=== PATIENT | female | born 1990 | race Hispanic/Latino ===

== ENCOUNTER 2016-04-09 11:32 | Emergency (ER) | payer OTHER ==
[2016-04-09] MEDS ORDERED: ACETAMINOPHEN 325 MG TAB As Ordered ONE (12:47)
--- NOTE | 2016-04-09 12:53 | EDDOCDS ---
Physician Documentation [facility] Name: Comfort Meadows Age: 26 yrs Sex: Female : 1990 Arrival Date: 04/09/2016 Time: 11:32 Bed TR7 Private MD: Ryan [facility] Disposition: 04/09/16 12:43 Discharged to Home/Self Care. Impression: related conditions, unspecified, first trimester, Pain in right hip. - Condition is Stable. - Discharge Instructions: Medicines During , Hip Pain, First Trimester of , [id number]. - Prescriptions for Tylenol 325 mg Oral Tablet - take 2 tablets by ORAL route every 6 hours as needed; 30 tablet. Cyclobenzaprine 10 mg Oral Tablet - take 1 tablet by ORAL route 3 times per day As needed Will cause drowsiness, do not take while driving or operating heavy machinery.; 15 tablet. - Medication Reconciliation, Local Pharmacy Hours form. - Follow up: OB [place]; When: 1 - 2 days; Reason: Further diagnostic work-up, Recheck today's complaints, Continuance of care. Follow up: Emergency Department; Reason: Worsening of conditions. - Problem is new. - Symptoms have improved. Historical: - Allergies: no known allergies; - Home Meds: 1. Vitamin Oral once daily - PMHx: Endometriosis; Psoriasis; - PSHx: Endoscopy, Lower; Endoscopy, Upper; ovarian cystectomy; - Social history: Smoking status: Patient states was never smoker of tobacco. No barriers to communication noted, The patient speaks fluent Ghanaian. - Family history: Not pertinent. - : The pt / caregiver states he / she is not on anticoagulants. Home medication list is obtained from the patient. - Exposure Risk Screening:: None identified. 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 4 in. (162.56 cm) (R); Pain 10/10; 11:38 Body Mass Index 25.23 (66.68 kg, 162.56 cm) elp MDM: 12:35 Acetaminophen Tablet 975 mg PO once ordered. ef1 12:35 Ice Pack ordered. ef1 Administered Medications: 12:50 Drug: Acetaminophen 975 mg [acetaminophen 325 mg tablet (3 tabs)] Route: PO; [facility] Signatures: Ellen Watts RN RN Anastasiya Leos PA-C PAFeroz ef1 MTDD
--- NOTE | 2016-04-09 12:53 | EDDOCDS ---
Nurse's Notes [facility] Name: Comfort Meadows Age: 26 yrs Sex: Female : 1990 Arrival Date: 04/09/2016 Time: 11:32 Bed TR7 Private MD: JERZY Davis Diagnosis: related conditions, unspecified, first trimester;Pain in right hip Presentation: 04/09 11:37 Presenting complaint: Patient states: Woke up with right hip pain--unable to get out of [facility] bed. Pt is 11 weeks . Adult Sepsis Screening: The patient does not have new or worsening altered mentation. Patient's respiratory rate is less than 22. Systolic blood pressure is greater than 100. Patient has a qSOFA score of 0- Negative Sepsis Screen. Suicide/Homicide risk assessment- the patient denies having any suicidal and/or homicidal ideations and does not present with any other emotional, behavioral or mental health complaints. Status: The patient is a dependent. Transition of care: patient was not received from another setting of care. 11:37 Acuity: BENOIT Level 4 [facility] 11:37 Method Of Arrival: Wheelchair [facility] Triage Assessment: 11:39 General: Appears uncomfortable, Behavior is cooperative. Pain: Location: right hip Pain mcp currently is 10 out of 10 on a pain scale. HIV screening NA for this visit Offered previously. Neurological: No deficits noted. Respiratory: Airway is patent Respiratory effort is even, unlabored. Derm: Skin is pink, warm & dry. Musculoskeletal: Circulation, motion, and sensation intact. 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 Vitamin Oral once daily - PMHx: Endometriosis; Psoriasis; - PSHx: Endoscopy, Lower; Endoscopy, Upper; ovarian cystectomy; - Social history: Smoking status: Patient states was never smoker of tobacco. No barriers to communication noted, The patient speaks fluent Persian. - Family history: Not pertinent. - : The pt / caregiver states he / she is not on anticoagulants. Home medication list is obtained from the patient. - Exposure Risk Screening:: None identified. Screenin:51 Screening information is obtained from the patient. Fall risk: No risks identified. mcp Assistance ADL's: requires no assistance with activities of daily living. Abuse/DV Screen: The patient / caregiver reports he/she is: not in a situation that causes fear, pain or injury. Nutritional screening: No deficits noted. Advance Directives: There is no active DNR order. home support is adequate. Assessment: 12:50 General: Appears uncomfortable, Behavior is cooperative. Pain: Location: right hip Pain mcp currently is 9 out of 10 on a pain scale. Neurological: No deficits noted. Respiratory: Airway is patent Respiratory effort is even, unlabored. Derm: Skin is pink, warm & dry. Musculoskeletal: Circulation, motion, and sensation intact. Vital Signs: 11:38 BP 129 / 68; Pulse 113; Resp 20; Temp 97.5(O); Pulse Ox 100% on R/A; Weight 66.68 kg elp (R); Height 5 ft. 4 in. (162.56 cm) (R); Pain 10/10; 11:38 Body Mass Index 25.23 (66.68 kg, 162.56 cm) [facility] Vitals: 11:38 Log In Time: April 09, 2016 at 11:35. [facility] ED Course: 11:36 Patient visited by Rey Polo PCA. dd6 11:36 [facility] is Private Physician. elp 11:36 Patient moved to Waiting dd6 11:36 Patient moved to Pre RCE elp 11:38 Triage Initiated mcp 11:40 Patient visited by Ellen Watts RN. mcp 12:12 Patient moved to Triage 3 dls 12:26 [facility] ef1 12:26 Ranulfo Garrison MD is Attending Physician. ef1 12:29 Patient visited by Anastasiya Soni PA-C. ef1 12:43 Madonna Lorenzo, OB is Referral Physician. ef1 12:49 Patient moved to TR7 ar3 12:51 The patient / caregiver is instructed regarding the plan of care and ED course. Bed in mcp low position. Call light in reach. 12:51 No IV's were initiated during this patient's visit. No procedures done that require mcp assistance. Administered Medications: 12:50 Drug: Acetaminophen 975 mg [acetaminophen 325 mg tablet (3 tabs)] Route: PO; mcp Order Results: There are currently no results for this order. Outcome: 12:43 Discharge ordered by Provider. ef1 12:51 Discharge Assessment: patient administered narcotics - no. The following High Risk mcp Discharge criteria are identified: None. Discharged to home ambulatory, with significant other. Condition: stable. Discharge instructions given to patient, Instructed on discharge instructions, follow up and referral plans. medication usage, no driving heavy equipment, no drinking with medication, Demonstrated understanding of instructions, medications, Pt was receptive of discharge instructions/ teaching. Prescriptions given X 2. No special radiology studies were completed. Property sent home with patient. 12:52 Patient left the ED. [facility] Signatures: Ellen Watts RN RN mcp Scott, Debra, RN RN dls Desormeau, Daniell, APARTMENT RENTAL AGENT APARTMENT RENTAL AGENT dd6 Anastasiya Soni PA-C PAFeroz ef1 Thao Gaines, APARTMENT RENTAL AGENT APARTMENT RENTAL AGENT ar3 Tamika Glover, APARTMENT RENTAL AGENT APARTMENT RENTAL AGENT elp Corrections: (The following items were deleted from the chart) 11:39 11:37 Presenting complaint: Patient states: Woke up with right hip pain--unable to get mcp out of bed mcp MTDD
--- NOTE | 2016-04-11 13:53 | EDDOCDS ---
Physician Documentation [facility] Name: Comfort Meadows Age: 26 yrs Sex: Female : 1990 Arrival Date: 04/09/2016 Time: 11:32 Bed TR7 Private MD: Ryan [facility] Disposition: 04/09/16 12:43 Discharged to Home/Self Care. Impression: related conditions, unspecified, first trimester, Pain in right hip. - Condition is Stable. - Discharge Instructions: Medicines During , Hip Pain, First Trimester of , [id number]. - Prescriptions for Tylenol 325 mg Oral Tablet - take 2 tablets by ORAL route every 6 hours as needed; 30 tablet. Cyclobenzaprine 10 mg Oral Tablet - take 1 tablet by ORAL route 3 times per day As needed Will cause drowsiness, do not take while driving or operating heavy machinery.; 15 tablet. - Medication Reconciliation, Local Pharmacy Hours form. - Follow up: OB [place]; When: 1 - 2 days; Reason: Further diagnostic work-up, Recheck today's complaints, Continuance of care. Follow up: Emergency Department; Reason: Worsening of conditions. - Problem is new. - Symptoms have improved. Historical: - Allergies: no known allergies; - Home Meds: 1. Vitamin Oral once daily - PMHx: Endometriosis; Psoriasis; - PSHx: Endoscopy, Lower; Endoscopy, Upper; ovarian cystectomy; - Social history: Smoking status: Patient states was never smoker of tobacco. No barriers to communication noted, The patient speaks fluent British. - Family history: Not pertinent. - : The pt / caregiver states he / she is not on anticoagulants. Home medication list is obtained from the patient. - Exposure Risk Screening:: None identified. 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 4 in. (162.56 cm) (R); Pain 10/10; 11:38 Body Mass Index 25.23 (66.68 kg, 162.56 cm) elp MDM: 12:35 Acetaminophen Tablet 975 mg PO once ordered. ef1 12:35 Ice Pack ordered. ef1 14:15 [facility] Payment Agreement was scanned into [employer] and attached to record. jp5 14:15 Financial registration complete. jp5 16:35 T-Sheet-- Draft Copy was scanned into [employer] and attached to record. klr Administered Medications: 12:50 Drug: Acetaminophen 975 mg [acetaminophen 325 mg tablet (3 tabs)] Route: PO; mcp Signatures: Ellen Watts RN RN Anastasiya Leos, PAAdelaC PAFeroz ef1 Mal Gomes jp5 Odalys Leer The chart was reviewed and I authenticate all verbal orders and agree with the evaluation and treatment provided.Attachments: 14:15 [facility] Payment Agreement jp5 16:35 T-Sheet-- Draft Copy klr Chart Complete MTDD
--- NOTE | 2016-04-11 13:53 | EDDOCDS ---
Physician Documentation [facility] Name: Comfort Meadows Age: 26 yrs Sex: Female : 1990 Arrival Date: 04/09/2016 Time: 11:32 Bed TR7 Private MD: Ryan [facility] [place] Disposition: 04/09/16 12:43 Discharged to Home/Self Care. Impression: related conditions, unspecified, first trimester, Pain in right hip. - Condition is Stable. - Discharge Instructions: Medicines During , Hip Pain, First Trimester of , [id number]. - Prescriptions for Tylenol 325 mg Oral Tablet - take 2 tablets by ORAL route every 6 hours as needed; 30 tablet. Cyclobenzaprine 10 mg Oral Tablet - take 1 tablet by ORAL route 3 times per day As needed Will cause drowsiness, do not take while driving or operating heavy machinery.; 15 tablet. - Medication Reconciliation, Local Pharmacy Hours form. - Follow up: OB [place]; When: 1 - 2 days; Reason: Further diagnostic work-up, Recheck today's complaints, Continuance of care. Follow up: Emergency Department; Reason: Worsening of conditions. - Problem is new. - Symptoms have improved. Historical: - Allergies: no known allergies; - Home Meds: 1. Vitamin Oral once daily - PMHx: Endometriosis; Psoriasis; - PSHx: Endoscopy, Lower; Endoscopy, Upper; ovarian cystectomy; - Social history: Smoking status: Patient states was never smoker of tobacco. No barriers to communication noted, The patient speaks fluent Kittitian. - Family history: Not pertinent. - : The pt / caregiver states he / she is not on anticoagulants. Home medication list is obtained from the patient. - Exposure Risk Screening:: None identified. 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 4 in. (162.56 cm) (R); Pain 10/10; 11:38 Body Mass Index 25.23 (66.68 kg, 162.56 cm) elp MDM: 12:35 Acetaminophen Tablet 975 mg PO once ordered. ef1 12:35 Ice Pack ordered. ef1 14:15 [facility] Payment Agreement was scanned into [employer] and attached to record. jp5 14:15 Financial registration complete. jp5 16:35 T-Sheet-- Draft Copy was scanned into [employer] and attached to record. klr Administered Medications: 12:50 Drug: Acetaminophen 975 mg [acetaminophen 325 mg tablet (3 tabs)] Route: PO; mcp Signatures: Ellen Watts RN RN Anastasiya Leos, PAAdelaC PAFeroz ef1 Mal Gomes jp5 Oadlys Leer The chart was reviewed and I authenticate all verbal orders and agree with the evaluation and treatment provided.Attachments: 14:15 [facility] Payment Agreement jp5 16:35 T-Sheet-- Draft Copy klr Chart Complete MTDD
--- NOTE | 2016-04-11 13:53 | EDDOCDS ---
Nurse's Notes [facility] Name: Comfort Meadows Age: 26 yrs Sex: Female : 1990 Arrival Date: 04/09/2016 Time: 11:32 Bed TR7 Private MD: JERZY Davis Diagnosis: related conditions, unspecified, first trimester;Pain in right hip Presentation: 04/09 11:37 Presenting complaint: Patient states: Woke up with right hip pain--unable to get out of [facility] bed. Pt is 11 weeks . Adult Sepsis Screening: The patient does not have new or worsening altered mentation. Patient's respiratory rate is less than 22. Systolic blood pressure is greater than 100. Patient has a qSOFA score of 0- Negative Sepsis Screen. Suicide/Homicide risk assessment- the patient denies having any suicidal and/or homicidal ideations and does not present with any other emotional, behavioral or mental health complaints. Status: The patient is a dependent. Transition of care: patient was not received from another setting of care. 11:37 Acuity: BENOIT Level 4 [facility] 11:37 Method Of Arrival: Wheelchair [facility] Triage Assessment: 11:39 General: Appears uncomfortable, Behavior is cooperative. Pain: Location: right hip Pain mcp currently is 10 out of 10 on a pain scale. HIV screening NA for this visit Offered previously. Neurological: No deficits noted. Respiratory: Airway is patent Respiratory effort is even, unlabored. Derm: Skin is pink, warm & dry. Musculoskeletal: Circulation, motion, and sensation intact. 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 Vitamin Oral once daily - PMHx: Endometriosis; Psoriasis; - PSHx: Endoscopy, Lower; Endoscopy, Upper; ovarian cystectomy; - Social history: Smoking status: Patient states was never smoker of tobacco. No barriers to communication noted, The patient speaks fluent Greenlandic. - Family history: Not pertinent. - : The pt / caregiver states he / she is not on anticoagulants. Home medication list is obtained from the patient. - Exposure Risk Screening:: None identified. Screenin:51 Screening information is obtained from the patient. Fall risk: No risks identified. mcp Assistance ADL's: requires no assistance with activities of daily living. Abuse/DV Screen: The patient / caregiver reports he/she is: not in a situation that causes fear, pain or injury. Nutritional screening: No deficits noted. Advance Directives: There is no active DNR order. home support is adequate. Assessment: 12:50 General: Appears uncomfortable, Behavior is cooperative. Pain: Location: right hip Pain mcp currently is 9 out of 10 on a pain scale. Neurological: No deficits noted. Respiratory: Airway is patent Respiratory effort is even, unlabored. Derm: Skin is pink, warm & dry. Musculoskeletal: Circulation, motion, and sensation intact. Vital Signs: 11:38 BP 129 / 68; Pulse 113; Resp 20; Temp 97.5(O); Pulse Ox 100% on R/A; Weight 66.68 kg elp (R); Height 5 ft. 4 in. (162.56 cm) (R); Pain 10/10; 11:38 Body Mass Index 25.23 (66.68 kg, 162.56 cm) el Vitals: 11:38 Log In Time: April 09, 2016 at 11:35. elp ED Course: 11:36 Patient visited by Rey Polo PCA. dd6 11:36 Ryan [facility] is Private Physician. elp 11:36 Patient moved to Waiting dd6 11:36 Patient moved to Pre RCE elp 11:38 Triage Initiated mcp 11:40 Patient visited by Ellen Watts RN. mcp 12:12 Patient moved to Triage 3 dls 12:26 Anastasiya Soni [facility]-C [facility]. ef1 12:26 Ranulfo Garrison MD is Attending Physician. ef1 12:29 Patient visited by Anastasiya Soni PA-C. ef1 12:43 Madonna Lorenzo, OB is Referral Physician. ef1 12:49 Patient moved to TR7 ar3 12:51 The patient / caregiver is instructed regarding the plan of care and ED course. Bed in mcp low position. Call light in reach. 12:51 No IV's were initiated during this patient's visit. No procedures done that require mcp assistance. 14:15 [facility] Payment Agreement was scanned into [employer] and attached to record. jp5 16:35 T-Sheet-- Draft Copy was scanned into [employer] and attached to record. klr Administered Medications: 12:50 Drug: Acetaminophen 975 mg [acetaminophen 325 mg tablet (3 tabs)] Route: PO; mcp Order Results: There are currently no results for this order. Outcome: 12:43 Discharge ordered by Provider. ef1 12:51 Discharge Assessment: patient administered narcotics - no. The following High Risk [facility] Discharge criteria are identified: None. Discharged to home ambulatory, with significant other. Condition: stable. Discharge instructions given to patient, Instructed on discharge instructions, follow up and referral plans. medication usage, no driving heavy equipment, no drinking with medication, Demonstrated understanding of instructions, medications, Pt was receptive of discharge instructions/ teaching. Prescriptions given X 2. No special radiology studies were completed. Property sent home with patient. 12:52 Patient left the ED. [facility] Signatures: Ellen Watts RN RN mcp Scott, Debra, RN RN dls Desormeau, Daniell, NET SORTER NET SORTER dd6 Anastasiya Soni, VANESSA PA-C ef1 Thoa Gaines, NET SORTER NET SORTER ar3 Tamika Glover, NET SORTER NET SORTER bryanp Mal Gomes jp5 Odalys Lee Corrections: (The following items were deleted from the chart) 11:39 11:37 Presenting complaint: Patient states: Woke up with right hip pain--unable to get mcp out of bed mcp Chart Complete MTDD
== END 2016-04-09 12:52 | disposition home or self-care (01) ==
LOC: M ED 11:32
DX: O99.89 Other specified diseases and conditions complicating pregnancy, childbirth and the puerperium (principal); M25.551 Pain in right hip; Z3A.11 11 weeks gestation of pregnancy; N80.9 Endometriosis, unspecified; L40.9 Psoriasis, unspecified; Z79.899 Other long term (current) drug therapy

== ENCOUNTER 2016-04-19 13:22 | Emergency (ER) | payer OTHER ==
[2016-04-19] MEDS ORDERED: ONDANSETRON 4MG/2ML VIAL (J2405) As Ordered ONE (16:57)
[2016-04-19 17:01] LABS: BASO # 0.1 K/mm3 (0.0-0.2); BASO % 0.7 % (0.0-1.0); EOS # 0.1 K/mm3 (0.0-0.50); EOS % 0.5 % (0.0-3.0); LARGE UNSTAINED CELL # 0.1 K/mm3 (0.0-0.4); LARGE UNSTAINED CELL % 0.9 % (0.0-4.0); LYMPH # 1.8 K/mm3 (1.5-6.5); LYMPH % 14.7 % (24.0-44.0); MEAN CORPUSCULAR HEMOGLOBIN 26.6 pg (27.0-33.0); MEAN CORPUSCULAR HGB CONC 32.6 g/dl (32.0-36.5); MEAN CORPUSCULAR VOLUME 81.6 fl (80.0-96.0); MONO # 0.6 K/mm3 (0.0-0.8); MONO % 5.2 % (0.0-5.0); NEUTROPHILS # 9.1 K/mm3 (1.8-7.7); PLATELET COUNT, AUTOMATED 305 k/mm3 (150-450); WHITE BLOOD COUNT 11.6 K/mm3 (4.0-10.0)
[2016-04-19 17:11] LABS: ANION GAP 10 MEQ/L (8-16); BLOOD UREA NITROGEN 5 MG/DL (7-18); CALCIUM LEVEL 9.5 MG/DL (8.5-10.1); CARBON DIOXIDE LEVEL 24 MEQ/L (21-32); CHLORIDE LEVEL 104 MEQ/L (98-107); CREATININE FOR GFR 0.56 MG/DL (0.55-1.02); GLOMERULAR FILTRATION RATE > 60.0 (>60); GLUCOSE, FASTING 86 MG/DL (70-105); POTASSIUM SERUM 3.4 MEQ/L (3.5-5.1); SODIUM LEVEL 138 MEQ/L (136-145)
[2016-04-19] MEDS ORDERED: METOCLOPRAMIDE INJ 10MG/2ML VIAL (J2765) As Ordered ONE (18:01)
--- NOTE | 2016-04-19 18:10 | REP ---
Obstetric sonography: History: Question intrauterine demise. Findings: Transabdominal scanning demonstrates a viable single intrauterine gestation in a free-floating lie. The embryonic pole measures 65 mm in crown-rump length. This corresponds with a gestational age estimate of 12 weeks 6 days. heart rate is recorded at 162 beats per minute. No extrauterine abnormality is observed. No subchorionic hemorrhage is seen. No gross anomaly. Impression: Viable single intrauterine gestation at 12 weeks 6 days by crown-rump length. AMAURI by sonography October 26, 2016. No complication is identified. Signed by Phillip Gale MD 04/19/2016 06:42 P
[2016-04-19] MEDS ORDERED: METOCLOPRAMIDE 10 MG TAB As Ordered ONE (20:26)
--- NOTE | 2016-04-19 20:33 | EDDOCDS ---
Physician Documentation [facility] Name: Comfort Meadows Age: 26 yrs Sex: Female : 1990 Arrival Date: 04/19/2016 Time: 13:22 Bed I4 / M4 Private MD: Ryan [facility] Disposition: 04/19/16 20:24 Discharged to Home/Self Care. Impression: Vomiting of , unspecified. - Condition is Stable. - Discharge Instructions: Hyperemesis Gravidarum. - Prescriptions for Reglan 10 mg Oral Tablet - take 1 tablet by ORAL route every 6 hours take 30 minutes before meals and at bedtime; 20 tablet. - Medication Reconciliation, Local Pharmacy Hours form. - Follow up: [facility] [place]; When: Tomorrow; Reason: Recheck today's complaints, Continuance of care. - Problem is new. - Symptoms have improved. - Notes: PLEASE USE MEDICATION INSTRUTCED, FOLLOW UP WITH [place] [facility] TOMORROW, RETURN TO THE ER IF THE SYMPTOMS WORSEN OR BECOME CONCERNING Historical: - Allergies: no known allergies; - Home Meds: 1. Vitamin Oral once daily - PMHx: Endometriosis; Psoriasis; - PSHx: Endoscopy, Lower; Endoscopy, Upper; ovarian cystectomy; - Social history: Smoking status: Patient states was never smoker of tobacco. No barriers to communication noted, The patient speaks fluent Portuguese. - Family history: Not pertinent. - : The pt / caregiver states he / she is not on anticoagulants. Home medication list is obtained from the patient. - Exposure Risk Screening:: None identified. 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 5 in. (165.10 cm) (R); Pain 5/10; 17:06 BP 116 / 66 Supine; Pulse 83; jmk 17:06 BP 128 / 67; Pulse 137; jmk 19:42 BP 99 / 56 LA Supine (auto/reg); Pulse 89; Resp 18; Temp 98.6; Pulse Ox 98% ; Pain 0/10;ajs 19:42 BP 98 / 60 LA Sitting (auto/reg); Pulse 108; ajs 19:42 BP 95 / 56 LA Standing (auto/reg); Pulse 81; ajs 13:24 Body Mass Index 23.63 (64.41 kg, 165.10 cm) gr2 MDM: 16:15 [facility] Payment Agreement was scanned into [employer] and attached to record. gjb 16:15 Financial registration complete. gjb 16:29 Orthostatic VS ordered. ck7 16:29 IV Saline Lock ordered. ck7 16:29 NS 0.9% 1000 ml IV at bolus once ordered. ck7 16:29 Ondansetron 4 mg IVP once ordered. ck7 16:29 Heart Tones ordered. ck7 16:30 CBC with Diff Ordered. EDMS 16:30 MED Profile Ordered. EDMS 16:30 UA Ordered. EDMS 16:49 US 1st trimester Ordered. EDMS 17:34 CBC with Diff Reviewed. ck7 17:34 MED Profile Reviewed. ck7 17:34 UA Reviewed. ck7 17:58 Metoclopramide 10 mg IV at 40 mg/hr once over 15 mins ordered. ck7 18:47 Orthostatic VS ordered. ck7 18:55 US 1st trimester Reviewed. ck7 19:29 Fluid Challenge ordered. ck7 19:30 US 1st trimester Reviewed. ck7 20:23 Metoclopramide 10 mg PO once; PLEASE DISPENSE TO GO HOME WITH ordered. ck7 Administered Medications: 17:05 Drug: Ondansetron 4 mg Route: IVP; Site: right antecubital; jmk 17:09 Drug: NS 0.9% 1000 ml Route: IV; Rate: bolus; Site: right antecubital; jmk 20:29 Follow up: IV Status: Completed infusion; IV Intake: 1000ml dsf 18:06 Drug: Metoclopramide 10 mg [metoclopramide 5 mg/mL injection solution] Route: IV; Rate: jmk 40 mg/hr; Infused Over: 15 mins; Site: right antecubital; 19:42 Follow up: IV Status: Completed infusion; IV Intake: 10ml dsf 20:29 Drug: Metoclopramide 10 mg [metoclopramide 10 mg tablet (1 tabs)] Route: PO; dsf Signatures: Dispatcher [employer] Manohar Osborne RN RN jmk Peters, Mary RN Sanjana Lee mcp, RN RN dsf Tye Munoz, BEVERLEY RPA-Cck7 Trina Bedoya The chart was reviewed and I authenticate all verbal orders and agree with the evaluation and treatment provided.Attachments: 16:15 [facility] Payment Agreement paul MTDD
--- NOTE | 2016-04-19 20:33 | EDDOCDS ---
Nurse's Notes [facility] Name: Comfort Meadows Age: 26 yrs Sex: Female : 1990 Arrival Date: 04/19/2016 Time: 13:22 Bed I4 / M4 Private MD[place] [facility] [place]: Vomiting of , unspecified Presentation: 04/19 13:34 Presenting complaint: Patient states: Has been vomiting for last 5 days, not sleeping. [facility] Adult Sepsis Screening: The patient does not have new or worsening altered mentation. Patient's respiratory rate is less than 22. Systolic blood pressure is greater than 100. Patient has a qSOFA score of 0- Negative Sepsis Screen. Suicide/Homicide risk assessment- the patient denies having any suicidal and/or homicidal ideations and does not present with any other emotional, behavioral or mental health complaints. Status: The patient is a dependent. Transition of care: patient was not received from another setting of care. 13:34 Acuity: BENOIT Level 3 [facility] 13:34 Method Of Arrival: Walkin/Carried/Asstd [facility] Triage Assessment: 13:35 General: Appears ill, Behavior is cooperative. Pain: Location: abdomen Pain currently mcp is 4 out of 10 on a pain scale. HIV screening NA for this visit Offered previously. Neurological: No deficits noted. Respiratory: No deficits noted. GI: Reports nausea, vomiting. Derm: Skin is pink, warm & dry. LEASING COORDINATOR: 13:35 2, Living 1, LMP 01/19/2016, Verified, EDC 10/25/2016, Gestational age mcp from LMP: 13 weeks 0 days Historical: - Allergies: no known allergies; - Home Meds: 1. Vitamin Oral once daily - PMHx: Endometriosis; Psoriasis; - PSHx: Endoscopy, Lower; Endoscopy, Upper; ovarian cystectomy; - Social history: Smoking status: Patient states was never smoker of tobacco. No barriers to communication noted, The patient speaks fluent Romanian. - Family history: Not pertinent. - : The pt / caregiver states he / she is not on anticoagulants. Home medication list is obtained from the patient. - Exposure Risk Screening:: None identified. Screenin:06 Screening information is obtained from the patient. Fall risk: No risks identified. jmk Assistance ADL's: requires no assistance with activities of daily living. Abuse/DV Screen: The patient / caregiver reports he/she is: not in a situation that causes fear, pain or injury. Nutritional screening: No deficits noted. Advance Directives: Currently, there is no health care proxy. There is no active DNR order. There is no living will. There is no Power of Spray Unit Feeder. Advance directive information has not previously been placed in an [facility] medical record. Further advance directive information is declined. home support is adequate. Assessment: 17:06 General: Appears in no apparent distress, skin warm and dry color satisfactory. Moist jmk pink oral mucosa. without abd discomfort. reports nausea without vomiting. Orthostats obtained and reports transient dizziness with standing. tolerated well. provider aware. GI: Abdomen is flat, non- distended Bowel sounds present X 4 quads. Abd is soft and non tender X 4 quads. 17:58 General: Appears states equally as nauseated but without emesis. IV bolus continues. jmk provider aware. 19:44 General: Appears in no apparent distress, Behavior is appropriate for age, cooperative. dsf Neurological: Level of Consciousness is awake, alert. Cardiovascular: No deficits noted. Respiratory: No deficits noted. Derm: Skin is pink, warm & dry. 19:45 General: pt tolerating alfred sepideh without nausea or vomiting . dsf 20:30 Adult Sepsis Screening: The patient does not have new or worsening altered mentation. dsf Patient's respiratory rate is less than 22. Systolic blood pressure is greater than 100. Patient has a qSOFA score of 0- Negative Sepsis Screen. General: Appears in no apparent distress, comfortable, Behavior is appropriate for age, cooperative. Pain: Denies pain. Neurological: Level of Consciousness is awake, alert, Oriented to person, place, time. Cardiovascular: Capillary refill < 3 seconds. Respiratory: Airway is patent Respiratory effort is even, unlabored, Respiratory pattern is regular, symmetrical. GI: Denies nausea, vomiting, pain. Derm: Skin is pink, warm & dry. Vital Signs: 13:24 BP 113 / 68; Pulse 112; Resp 18 S; Temp 97.8(O); Pulse Ox 100% on R/A; Weight 64.41 kg gr2 (R); Height 5 ft. 5 in. (165.10 cm) (R); Pain 5/10; 17:06 BP 116 / 66 Supine; Pulse 83; jmk 17:06 BP 128 / 67; Pulse 137; jmk 19:42 BP 99 / 56 LA Supine (auto/reg); Pulse 89; Resp 18; Temp 98.6; Pulse Ox 98% ; Pain 0/10;ajs 19:42 BP 98 / 60 LA Sitting (auto/reg); Pulse 108; ajs 19:42 BP 95 / 56 LA Standing (auto/reg); Pulse 81; ajs 13:24 Body Mass Index 23.63 (64.41 kg, 165.10 cm) gr2 Vitals: 13:24 Log In Time: April 19, 2016 at 13:24. gr2 16:51 Heart Tones Unable to obtain Note pt states she is 13 weeks , unable to ead obtain heart tones. ED Course: 13:24 Patient visited by Louise Romano. gr2 13:24 [place] [facility] [place] Private Physician. gr2 13:24 Patient moved to Waiting gr2 13:25 Patient visited by Louise Romano. gr2 13:25 Patient moved to Pre RCE gr2 13:34 Triage Initiated mcp 13:36 Patient visited by Ellen Watts RN. mcp 15:29 Patient moved to Triage 3 mcp 16:09 Tye Munoz R[facility]-C [facility] ck7 16:09 Jazmine Camacho MD is Attending Physician. ck7 16:09 Patient visited by Tye Munoz RPA-C. ck7 16:15 COUNT INCLUDES THE [facility] Payment Agreement was scanned into [employer] and attached to record. gjb 16:20 Patient name changed from [place]\S\\S\[place]\S\ to [place]\S\ \S\[place]. EDMS 16:30 Patient moved to I4 / M4 cmb 16:48 Patient visited by Tye Munoz RPA-C. ck7 17:06 The patient / caregiver is instructed regarding the plan of care and ED course. jmk 17:06 Inserted saline lock: 20 gauge in right antecubital area. jmk 17:34 Patient visited by Tye Munoz RPA-C. ck7 18:06 Patient visited by Manohar Goyal RN. jmk 18:12 US 1st trimester Returned. EDMS 18:40 Patient visited by Tye Munoz RPA-C. ck7 19:11 US 1st trimester Returned. EDMS 19:26 Patient visited by Tye Munoz RPA-C. ck7 19:43 Patient visited by Cortney Romero. ajs 19:45 Patient visited by Sanjana Edwards RN. dsf 20:20 Patient visited by Tye Munoz RPA-C. ck7 20:22 Patient visited by Tye Munoz RPA-C. ck7 20:23 Madonna Lorenzo OB is Referral Physician. ck7 20:30 Discontinued lock intact, bleeding controlled, pressure dressing applied, No dsf redness/swelling at site. No procedures done that require assistance. Administered Medications: 17:05 Drug: Ondansetron 4 mg Route: IVP; Site: right antecubital; jmk 17:09 Drug: NS 0.9% 1000 ml Route: IV; Rate: bolus; Site: right antecubital; jmk 20:29 Follow up: IV Status: Completed infusion; IV Intake: 1000ml dsf 18:06 Drug: Metoclopramide 10 mg [metoclopramide 5 mg/mL injection solution] Route: IV; Rate: jmk 40 mg/hr; Infused Over: 15 mins; Site: right antecubital; 19:42 Follow up: IV Status: Completed infusion; IV Intake: 10ml dsf 20:29 Drug: Metoclopramide 10 mg [metoclopramide 10 mg tablet (1 tabs)] Route: PO; dsf Intake: 19:42 IV: 10.00ml; Total: 10.00ml. dsf 20:29 IV: 1000.00ml; Total: 1010.00ml. dsf Order Results: Lab Order: CBC with Diff; SPEC'M 04/19/16 16:32 Test: WHITE BLOOD COUNT; Value: 11.6; Range: 4.0-10.0; Abnormal: Above high normal; Units: K/mm3; Status: F Test: RED BLOOD COUNT; Value: 4.74; Range: 4.00-5.40; Units: M/mm3; Status: F Test: HEMOGLOBIN; Value: 12.6; Range: 12.0-16.0; Units: g/dl; Status: F Test: HEMATOCRIT; Value: 38.7; Range: 36.0-47.0; Units: %; Status: F Test: MEAN CORPUSCULAR VOLUME; Value: 81.6; Range: 80.0-96.0; Units: fl; Status: F Test: MEAN CORPUSCULAR HEMOGLOBIN; Value: 26.6; Range: 27.0-33.0; Abnormal: Below low normal; Units: pg; Status: F Test: MEAN CORPUSCULAR HGB CONC; Value: 32.6; Range: 32.0-36.5; Units: g/dl; Status: F Test: RED CELL DISTRIBUTION WIDTH; Value: 13.0; Range: 11.5-14.5; Units: %; Status: F Test: PLATELET COUNT, AUTOMATED; Value: 305; Range: 150-450; Units: k/mm3; Status: F Test: NEUTROPHILS %; Value: 78.0; Range: 36.0-66.0; Abnormal: Above high normal; Units: %; Status: F Test: LYMPH %; Value: 14.7; Range: 24.0-44.0; Abnormal: Below low normal; Units: %; Status: F Test: MONO %; Value: 5.2; Range: 0.0-5.0; Abnormal: Above high normal; Units: %; Status: F Test: EOS %; Value: 0.5; Range: 0.0-3.0; Units: %; Status: F Test: BASO %; Value: 0.7; Range: 0.0-1.0; Units: %; Status: F Test: LARGE UNSTAINED CELL %; Value: 0.9; Range: 0.0-4.0; Units: %; Status: F Test: NEUTROPHILS #; Value: 9.1; Range: 1.8-7.7; Abnormal: Above high normal; Units: K/mm3; Status: F Test: LYMPH #; Value: 1.8; Range: 1.5-6.5; Units: K/mm3; Status: F Test: MONO #; Value: 0.6; Range: 0.0-0.8; Units: K/mm3; Status: F Test: EOS #; Value: 0.1; Range: 0.0-0.50; Units: K/mm3; Status: F Test: BASO #; Value: 0.1; Range: 0.0-0.2; Units: K/mm3; Status: F Test: LARGE UNSTAINED CELL #; Value: 0.1; Range: 0.0-0.4; Units: K/mm3; Status: F Lab Order: MED Profile; SPEC'M 04/19/16 16:32 Test: GLUCOSE, FASTING; Value: 86; Range: 70-105; Units: MG/DL; Status: F Test: BLOOD UREA NITROGEN; Value: 5; Range: 7-18; Abnormal: Below low normal; Units: MG/DL; Status: F Test: CREATININE FOR GFR; Value: 0.56; Range: 0.55-1.02; Units: MG/DL; Status: F Test: GLOMERULAR FILTRATION RATE; Value: > 60.0; Range: >60; Status: F Test: SODIUM LEVEL; Value: 138; Range: 136-145; Units: MEQ/L; Status: F Test: POTASSIUM SERUM; Value: 3.4; Range: 3.5-5.1; Abnormal: Below low normal; Units: MEQ/L; Status: F Test: CHLORIDE LEVEL; Value: 104; Range: 98-107; Units: MEQ/L; Status: F Test: CARBON DIOXIDE LEVEL; Value: 24; Range: 21-32; Units: MEQ/L; Status: F Test: ANION GAP; Value: 10; Range: 8-16; Units: MEQ/L; Status: F Test: CALCIUM LEVEL; Value: 9.5; Range: 8.5-10.1; Units: MG/DL; Status: F Test Note: ; Units are mL/min/1.73 m2 Chronic Kidney Disease Staging per NKF: Stage I & II GFR >=60 Normal to Mildly Decreased Stage III GFR 30-59 Moderately Decreased Stage IV GFR 15-29 Severely Decreased Stage V GFR <15 Very Little GFR Left ESRD GFR <15 on HISTOLOGY AIDE Lab Order: UA; SPEC'M 04/19/16 16:33 Test: APPEARANCE, URINE; Value: CLOUDY; Range: CLEAR; Abnormal: Above high normal; Status: F Test: COLOR, URINE; Value: YELLOW; Range: YELLOW; Status: F Test: PH,URINE; Value: 5.0; Range: 5.0-9.0; Units: UNITS; Status: F Test: SPECIFIC GRAVITY URINE AUTO; Value: 1.029; Range: 1.002-1.035; Status: F Test: PROTEIN, URINE AUTO; Value: 1+; Range: NEGATIVE; Abnormal: Above high normal; Units: mg/dL; Status: F Test: GLUCOSE, URINE (UA) AUTO; Value: NEGATIVE; Range: NEGATIVE; Units: mg/dL; Status: F Test: KETONE, URINE AUTO; Value: 2+; Range: NEGATIVE; Abnormal: Above high normal; Units: mg/dL; Status: F Test: UROBILINOGEN, URINE AUTO; Value: 0.2; Range: 0.0-2.0; Units: mg/dL; Status: F Test: BILIRUBIN, URINE AUTO; Value: NEGATIVE; Range: NEGATIVE; Status: F Test: NITRITE, URINE AUTO; Value: NEGATIVE; Range: NEGATIVE; Status: F Test: LEUKOCYTE ESTERASE, URINE AUTO; Value: TRACE; Range: NEGATIVE; Abnormal: Above high normal; Status: F Test: BLOOD, URINE BLOOD; Value: NEGATIVE; Range: NEGATIVE; Status: F Test: WBC, URINE AUTO; Value: 8; Range: 0-3; Abnormal: Above high normal; Units: /HPF; Status: F Test: RBC, URINE AUTO; Value: 7; Range: 0-3; Abnormal: Above high normal; Units: /HPF; Status: F Test: BACTERIA, URINE AUTO; Value: NEGATIVE; Range: NEGATIVE; Status: F Test: SQUAMOUS EPITHELIAL CELL UR AU; Value: 8; Range: 0-6; Units: /HPF; Status: F Test: MUCUS, URINE; Value: LARGE; Range: NEGATIVE; Status: F Test: HYALINE CAST, URINE AUTO; Value: 0; Range: 0-1; Units: /LPF; Status: F Radiology Order: US 1st trimester Test: US 1st trimester REASON FOR EXAMINATION: r/o demise; Obstetric sonography:; ; History: Question intrauterine demise.; ; Findings: Transabdominal scanning demonstrates a viable single intrauterine; gestation in a free-floating lie. The embryonic pole measures 65 mm in; crown-rump length. This corresponds with a gestational age estimate of 12 weeks; 6 days. heart rate is recorded at 162 beats per minute. No extrauterine; abnormality is observed. No subchorionic hemorrhage is seen. No gross ; anomaly.; ; Impression:; ; Viable single intrauterine gestation at 12 weeks 6 days by crown-rump length.; AMAURI by sonography October 26, 2016. No complication is identified.; ; ; Signed by; Phillip Gale MD 04/19/2016 06:42 P; Outcome: 20:24 Discharge ordered by Provider. ck7 20:30 Discharge Assessment: Patient awake, alert and oriented x 3. No cognitive and/or dsf functional deficits noted. Patient verbalized understanding of disposition instructions. patient administered narcotics - no. The following High Risk Discharge criteria are identified: None. Discharged to home ambulatory. Condition: stable. Discharge instructions given to patient, Instructed on discharge instructions, follow up and referral plans. medication usage, Demonstrated understanding of instructions, medications, Pt was receptive of discharge instructions/ teaching. Prescriptions given X 1. Ultrasound Study completed. Property sent home with patient. 20:31 Patient left the ED. dsf Signatures: Dispatcher [employer] EDManohar Canseco RN RN jmk Peters, Mary RN Sanjana Lee mcp, RN RN dsCortney Minor Chelsea cmb Kwaczala, Christopher, RPA-C RPA-Cck7 Louise Romano gr2 Josette Serrano RN RN ead Beck, Gabriela gjb MTDD
--- NOTE | 2016-04-21 21:33 | EDDOCDS ---
Physician Documentation [facility] Name: Comfort Meadows Age: 26 yrs Sex: Female : 1990 Arrival Date: 04/19/2016 Time: 13:22 Bed I4 / M4 Private MD: Ryan [facility] [place] Disposition: 04/19/16 20:24 Discharged to Home/Self Care. Impression: Vomiting of , unspecified. - Condition is Stable. - Discharge Instructions: Hyperemesis Gravidarum. - Prescriptions for Reglan 10 mg Oral Tablet - take 1 tablet by ORAL route every 6 hours take 30 minutes before meals and at bedtime; 20 tablet. - Medication Reconciliation, Local Pharmacy Hours form. - Follow up: [facility] [place]; When: Tomorrow; Reason: Recheck today's complaints, Continuance of care. - Problem is new. - Symptoms have improved. - Notes: PLEASE USE MEDICATION INSTRUTCED, FOLLOW UP WITH [facility] TOMORROW, RETURN TO THE ER IF THE SYMPTOMS WORSEN OR BECOME CONCERNING Historical: - Allergies: no known allergies; - Home Meds: 1. Vitamin Oral once daily - PMHx: Endometriosis; Psoriasis; - PSHx: Endoscopy, Lower; Endoscopy, Upper; ovarian cystectomy; - Social history: Smoking status: Patient states was never smoker of tobacco. No barriers to communication noted, The patient speaks fluent Armenian. - Family history: Not pertinent. - : The pt / caregiver states he / she is not on anticoagulants. Home medication list is obtained from the patient. - Exposure Risk Screening:: None identified. WINTERIZER: 04/19 13:35 2, Living 1, LMP 01/19/2016, Verified, EDC 10/25/2016, Gestational age mcp from LMP: 13 weeks 0 days Vital Signs: 13:24 BP 113 / 68; Pulse 112; Resp 18 S; Temp 97.8(O); Pulse Ox 100% on R/A; Weight 64.41 kg gr2 / 142 lbs (R); Height 5 ft. 5 in. (165.10 cm) (R); Pain 5/10; 17:06 BP 116 / 66 Supine; Pulse 83; jmk 17:06 BP 128 / 67; Pulse 137; jmk 19:42 BP 99 / 56 LA Supine (auto/reg); Pulse 89; Resp 18; Temp 98.6; Pulse Ox 98% ; Pain 0/10;ajs 19:42 BP 98 / 60 LA Sitting (auto/reg); Pulse 108; ajs 19:42 BP 95 / 56 LA Standing (auto/reg); Pulse 81; ajs 13:24 Body Mass Index 23.63 (64.41 kg, 165.10 cm) gr2 MDM: 16:15 [facility] [place] Agreement was scanned into [employer] and attached to record. gjb 16:15 Financial registration complete. gjb 16:29 Orthostatic VS ordered. ck7 16:29 IV Saline Lock ordered. ck7 16:29 NS 0.9% 1000 ml IV at bolus once ordered. ck7 16:29 Ondansetron 4 mg IVP once ordered. ck7 16:29 Heart Tones ordered. ck7 16:30 CBC with Diff Ordered. EDMS 16:30 MED Profile Ordered. EDMS 16:30 UA Ordered. EDMS 16:49 US 1st trimester Ordered. EDMS 17:34 CBC with Diff Reviewed. ck7 17:34 MED Profile Reviewed. ck7 17:34 UA Reviewed. ck7 17:58 Metoclopramide 10 mg IV at 40 mg/hr once over 15 mins ordered. ck7 18:47 Orthostatic VS ordered. ck7 18:55 US 1st trimester Reviewed. ck7 19:29 Fluid Challenge ordered. ck7 19:30 US 1st trimester Reviewed. ck7 20:23 Metoclopramide 10 mg PO once; PLEASE DISPENSE TO GO HOME WITH ordered. ck7 04/20 11:23 T-Sheet-- Draft Copy was scanned into [employer] and attached to record. gb Administered Medications: 04/19 17:05 Drug: Ondansetron 4 mg Route: IVP; Site: right antecubital; jmk 17:09 Drug: NS 0.9% 1000 ml Route: IV; Rate: bolus; Site: right antecubital; jmk 20:29 Follow up: IV Status: Completed infusion; IV Intake: 1000ml dsf 18:06 Drug: Metoclopramide 10 mg [metoclopramide 5 mg/mL injection solution] Route: IV; Rate: jmk 40 mg/hr; Infused Over: 15 mins; Site: right antecubital; 19:42 Follow up: IV Status: Completed infusion; IV Intake: 10ml dsf 20:29 Drug: Metoclopramide 10 mg [metoclopramide 10 mg tablet (1 tabs)] Route: PO; dsf Signatures: Dispatcher [employer] Manohar Osbonre,RN RN Ellen Moon RN RN Nadya Hood, Reg Reg Sanjana Ford RN RN dsf Tye Munoz, RPA-C RPA-Cck7 Trina Bedoya The chart was reviewed and I authenticate all verbal orders and agree with the evaluation and treatment provided.Attachments: 16:15 [facility] Payment Agreement gjb 04/20 11:23 T-Sheet-- Draft Copy gb Chart Complete MTDD
--- NOTE | 2016-04-21 21:33 | EDDOCDS ---
Physician Documentation [facility] Name: Comfort Meadows Age: 26 yrs Sex: Female : 1990 Arrival Date: 04/19/2016 Time: 13:22 Bed I4 / M4 Private MD: Rayn [facility] [place] Disposition: 04/19/16 20:24 Discharged to Home/Self Care. Impression: Vomiting of , unspecified. - Condition is Stable. - Discharge Instructions: Hyperemesis Gravidarum. - Prescriptions for Reglan 10 mg Oral Tablet - take 1 tablet by ORAL route every 6 hours take 30 minutes before meals and at bedtime; 20 tablet. - Medication Reconciliation, Local Pharmacy Hours form. - Follow up: [facility] [place]; When: Tomorrow; Reason: Recheck today's complaints, Continuance of care. - Problem is new. - Symptoms have improved. - Notes: PLEASE USE MEDICATION INSTRUTCED, FOLLOW UP WITH [facility] TOMORROW, RETURN TO THE ER IF THE SYMPTOMS WORSEN OR BECOME CONCERNING Historical: - Allergies: no known allergies; - Home Meds: 1. Vitamin Oral once daily - PMHx: Endometriosis; Psoriasis; - PSHx: Endoscopy, Lower; Endoscopy, Upper; ovarian cystectomy; - Social history: Smoking status: Patient states was never smoker of tobacco. No barriers to communication noted, The patient speaks fluent Swedish. - Family history: Not pertinent. - : The pt / caregiver states he / she is not on anticoagulants. Home medication list is obtained from the patient. - Exposure Risk Screening:: None identified. CLINICAL PHARMACOLOGIST: 04/19 13:35 2, Living 1, LMP 01/19/2016, Verified, EDC 10/25/2016, Gestational age mcp from LMP: 13 weeks 0 days Vital Signs: 13:24 BP 113 / 68; Pulse 112; Resp 18 S; Temp 97.8(O); Pulse Ox 100% on R/A; Weight 64.41 kg gr2 / 142 lbs (R); Height 5 ft. 5 in. (165.10 cm) (R); Pain 5/10; 17:06 BP 116 / 66 Supine; Pulse 83; jmk 17:06 BP 128 / 67; Pulse 137; jmk 19:42 BP 99 / 56 LA Supine (auto/reg); Pulse 89; Resp 18; Temp 98.6; Pulse Ox 98% ; Pain 0/10;ajs 19:42 BP 98 / 60 LA Sitting (auto/reg); Pulse 108; ajs 19:42 BP 95 / 56 LA Standing (auto/reg); Pulse 81; ajs 13:24 Body Mass Index 23.63 (64.41 kg, 165.10 cm) gr2 MDM: 16:15 [facility] [place] Payment Agreement was scanned into [employer] and attached to record. gjb 16:15 Financial registration complete. gjb 16:29 Orthostatic VS ordered. ck7 16:29 IV Saline Lock ordered. ck7 16:29 NS 0.9% 1000 ml IV at bolus once ordered. ck7 16:29 Ondansetron 4 mg IVP once ordered. ck7 16:29 Heart Tones ordered. ck7 16:30 CBC with Diff Ordered. EDMS 16:30 MED Profile Ordered. EDMS 16:30 UA Ordered. EDMS 16:49 US 1st trimester Ordered. EDMS 17:34 CBC with Diff Reviewed. ck7 17:34 MED Profile Reviewed. ck7 17:34 UA Reviewed. ck7 17:58 Metoclopramide 10 mg IV at 40 mg/hr once over 15 mins ordered. ck7 18:47 Orthostatic VS ordered. ck7 18:55 US 1st trimester Reviewed. ck7 19:29 Fluid Challenge ordered. ck7 19:30 US 1st trimester Reviewed. ck7 20:23 Metoclopramide 10 mg PO once; PLEASE DISPENSE TO GO HOME WITH ordered. ck7 04/20 11:23 T-Sheet-- Draft Copy was scanned into [employer] and attached to record. gb Administered Medications: 04/19 17:05 Drug: Ondansetron 4 mg Route: IVP; Site: right antecubital; jmk 17:09 Drug: NS 0.9% 1000 ml Route: IV; Rate: bolus; Site: right antecubital; jmk 20:29 Follow up: IV Status: Completed infusion; IV Intake: 1000ml dsf 18:06 Drug: Metoclopramide 10 mg [metoclopramide 5 mg/mL injection solution] Route: IV; Rate: jmk 40 mg/hr; Infused Over: 15 mins; Site: right antecubital; 19:42 Follow up: IV Status: Completed infusion; IV Intake: 10ml dsf 20:29 Drug: Metoclopramide 10 mg [metoclopramide 10 mg tablet (1 tabs)] Route: PO; dsf Signatures: Dispatcher [employer] Manohar Osborne,RN RN Ellen Moon RN RN Nadya Hood, Reg Reg Sanjana Ford RN RN dsf Tye Munoz, RPA-C RPA-Cck7 Trina Bedoya The chart was reviewed and I authenticate all verbal orders and agree with the evaluation and treatment provided.Attachments: 16:15 [facility] Payment Agreement gjb 04/20 11:23 T-Sheet-- Draft Copy gb Chart Complete MTDD
--- NOTE | 2016-04-21 21:33 | EDDOCDS ---
Nurse's Notes [facility] Name: Comfort Meadows Age: 26 yrs Sex: Female : 1990 Arrival Date: 04/19/2016 Time: 13:22 Bed I4 / M4 Private MD: Ryan [facility] [place] Diagnosis: Vomiting of , unspecified Presentation: 04/19 13:34 Presenting complaint: Patient states: Has been vomiting for last 5 days, not sleeping. [facility] Adult Sepsis Screening: The patient does not have new or worsening altered mentation. Patient's respiratory rate is less than 22. Systolic blood pressure is greater than 100. Patient has a qSOFA score of 0- Negative Sepsis Screen. Suicide/Homicide risk assessment- the patient denies having any suicidal and/or homicidal ideations and does not present with any other emotional, behavioral or mental health complaints. Status: The patient is a dependent. Transition of care: patient was not received from another setting of care. 13:34 Acuity: BENOIT Level 3 [facility] 13:34 Method Of Arrival: Walkin/Carried/Asstd [facility] Triage Assessment: 13:35 General: Appears ill, Behavior is cooperative. Pain: Location: abdomen Pain currently mcp is 4 out of 10 on a pain scale. HIV screening NA for this visit Offered previously. Neurological: No deficits noted. Respiratory: No deficits noted. GI: Reports nausea, vomiting. Derm: Skin is pink, warm & dry. [employer] ME[employer]IC: 13:35 2, Living 1, LMP 01/19/2016, Verified, EDC 10/25/2016, Gestational age mcp from LMP: 13 weeks 0 days Historical: - Allergies: no known allergies; - Home Meds: 1. Vitamin Oral once daily - PMHx: Endometriosis; Psoriasis; - PSHx: Endoscopy, Lower; Endoscopy, Upper; ovarian cystectomy; - Social history: Smoking status: Patient states was never smoker of tobacco. No barriers to communication noted, The patient speaks fluent Lao. - Family history: Not pertinent. - : The pt / caregiver states he / she is not on anticoagulants. Home medication list is obtained from the patient. - Exposure Risk Screening:: None identified. Screenin:06 Screening information is obtained from the patient. Fall risk: No risks identified. jmk Assistance ADL's: requires no assistance with activities of daily living. Abuse/DV Screen: The patient / caregiver reports he/she is: not in a situation that causes fear, pain or injury. Nutritional screening: No deficits noted. Advance Directives: Currently, there is no health care proxy. There is no active DNR order. There is no living will. There is no Power of Physician Compensation Analyst. Advance directive information has not previously been placed in an [facility] medical record. Further advance directive information is declined. home support is adequate. Assessment: 17:06 General: Appears in no apparent distress, skin warm and dry color satisfactory. Moist jmk pink oral mucosa. without abd discomfort. reports nausea without vomiting. Orthostats obtained and reports transient dizziness with standing. tolerated well. provider aware. GI: Abdomen is flat, non- distended Bowel sounds present X 4 quads. Abd is soft and non tender X 4 quads. 17:58 General: Appears states equally as nauseated but without emesis. IV bolus continues. jmk provider aware. 19:44 General: Appears in no apparent distress, Behavior is appropriate for age, cooperative. dsf Neurological: Level of Consciousness is awake, alert. Cardiovascular: No deficits noted. Respiratory: No deficits noted. Derm: Skin is pink, warm & dry. 19:45 General: pt tolerating alfred sepideh without nausea or vomiting . dsf 20:30 Adult Sepsis Screening: The patient does not have new or worsening altered mentation. dsf Patient's respiratory rate is less than 22. Systolic blood pressure is greater than 100. Patient has a qSOFA score of 0- Negative Sepsis Screen. General: Appears in no apparent distress, comfortable, Behavior is appropriate for age, cooperative. Pain: Denies pain. Neurological: Level of Consciousness is awake, alert, Oriented to person, place, time. Cardiovascular: Capillary refill < 3 seconds. Respiratory: Airway is patent Respiratory effort is even, unlabored, Respiratory pattern is regular, symmetrical. GI: Denies nausea, vomiting, pain. Derm: Skin is pink, warm & dry. Vital Signs: 13:24 BP 113 / 68; Pulse 112; Resp 18 S; Temp 97.8(O); Pulse Ox 100% on R/A; Weight 64.41 kg gr2 (R); Height 5 ft. 5 in. (165.10 cm) (R); Pain 5/10; 17:06 BP 116 / 66 Supine; Pulse 83; jmk 17:06 BP 128 / 67; Pulse 137; jmk 19:42 BP 99 / 56 LA Supine (auto/reg); Pulse 89; Resp 18; Temp 98.6; Pulse Ox 98% ; Pain 0/10;ajs 19:42 BP 98 / 60 LA Sitting (auto/reg); Pulse 108; ajs 19:42 BP 95 / 56 LA Standing (auto/reg); Pulse 81; ajs 13:24 Body Mass Index 23.63 (64.41 kg, 165.10 cm) gr2 Vitals: 13:24 Log In Time: April 19, 2016 at 13:24. gr2 16:51 Heart Tones Unable to obtain Note pt states she is 13 weeks , unable to ead obtain heart tones. ED Course: 13:24 Patient visited by Louise Romano. gr2 13:24 Ryan [facility] [place] is Private Physician. gr2 13:24 Patient moved to Waiting gr2 13:25 Patient visited by Louise Romano. gr2 13:25 Patient moved to Pre RCE gr2 13:34 Triage Initiated mcp 13:36 Patient visited by Ellen Watts RN. mcp 15:29 Patient moved to Triage 3 mcp 16:09 Tye Munoz RPA-C [facility] ck7 16:09 Jazmine Camacho MD is Attending Physician. ck7 16:09 Patient visited by Tye Munoz RPA-C. ck7 16:15 [facility] Payment Agreement was scanned into [employer] for [employer] and attached to record. gjb 16:20 Patient name changed from [place]\S\\S\[place]\S\ to Damarie\S\ \S\Meadows. EDMS 16:30 Patient moved to I4 / M4 cmb 16:48 Patient visited by Tye Munoz RPA-C. ck7 17:06 The patient / caregiver is instructed regarding the plan of care and ED course. jmk 17:06 Inserted saline lock: 20 gauge in right antecubital area. jmk 17:34 Patient visited by Tye Munoz RPA-C. ck7 18:06 Patient visited by Manohar Goyal RN. jmk 18:12 US 1st trimester Returned. EDMS 18:40 Patient visited by Tye Munoz RPA-C. ck7 19:11 US 1st trimester Returned. EDMS 19:26 Patient visited by Tye Munoz RPA-C. ck7 19:43 Patient visited by Cortney Romero. ajs 19:45 Patient visited by Sanjana Edwards RN. dsf 20:20 Patient visited by Tye Munoz RPA-C. ck7 20:22 Patient visited by Tye Munoz RPA-C. ck7 20:23 Madonna Lorenzo OB is Referral Physician. ck7 20:30 Discontinued lock intact, bleeding controlled, pressure dressing applied, No dsf redness/swelling at site. No procedures done that require assistance. 04/20 11:23 T-Sheet-- Draft Copy was scanned into [employer] for [employer] and attached to record. gb Administered Medications: 04/19 17:05 Drug: Ondansetron 4 mg Route: IVP; Site: right antecubital; jmk 17:09 Drug: NS 0.9% 1000 ml Route: IV; Rate: bolus; Site: right antecubital; jmk 20:29 Follow up: IV Status: Completed infusion; IV Intake: 1000ml dsf 18:06 Drug: Metoclopramide 10 mg [metoclopramide 5 mg/mL injection solution] Route: IV; Rate: jmk 40 mg/hr; Infused Over: 15 mins; Site: right antecubital; 19:42 Follow up: IV Status: Completed infusion; IV Intake: 10ml dsf 20:29 Drug: Metoclopramide 10 mg [metoclopramide 10 mg tablet (1 tabs)] Route: PO; dsf Intake: 19:42 IV: 10.00ml; Total: 10.00ml. dsf 20:29 IV: 1000.00ml; Total: 1010.00ml. dsf Order Results: Lab Order: CBC with Diff; SPEC'M 04/19/16 16:32 Test: WHITE BLOOD COUNT; Value: 11.6; Range: 4.0-10.0; Abnormal: Above high normal; Units: K/mm3; Status: F Test: RED BLOOD COUNT; Value: 4.74; Range: 4.00-5.40; Units: M/mm3; Status: F Test: HEMOGLOBIN; Value: 12.6; Range: 12.0-16.0; Units: g/dl; Status: F Test: HEMATOCRIT; Value: 38.7; Range: 36.0-47.0; Units: %; Status: F Test: MEAN CORPUSCULAR VOLUME; Value: 81.6; Range: 80.0-96.0; Units: fl; Status: F Test: MEAN CORPUSCULAR HEMOGLOBIN; Value: 26.6; Range: 27.0-33.0; Abnormal: Below low normal; Units: pg; Status: F Test: MEAN CORPUSCULAR HGB CONC; Value: 32.6; Range: 32.0-36.5; Units: g/dl; Status: F Test: RED CELL DISTRIBUTION WIDTH; Value: 13.0; Range: 11.5-14.5; Units: %; Status: F Test: PLATELET COUNT, AUTOMATED; Value: 305; Range: 150-450; Units: k/mm3; Status: F Test: NEUTROPHILS %; Value: 78.0; Range: 36.0-66.0; Abnormal: Above high normal; Units: %; Status: F Test: LYMPH %; Value: 14.7; Range: 24.0-44.0; Abnormal: Below low normal; Units: %; Status: F Test: MONO %; Value: 5.2; Range: 0.0-5.0; Abnormal: Above high normal; Units: %; Status: F Test: EOS %; Value: 0.5; Range: 0.0-3.0; Units: %; Status: F Test: BASO %; Value: 0.7; Range: 0.0-1.0; Units: %; Status: F Test: LARGE UNSTAINED CELL %; Value: 0.9; Range: 0.0-4.0; Units: %; Status: F Test: NEUTROPHILS #; Value: 9.1; Range: 1.8-7.7; Abnormal: Above high normal; Units: K/mm3; Status: F Test: LYMPH #; Value: 1.8; Range: 1.5-6.5; Units: K/mm3; Status: F Test: MONO #; Value: 0.6; Range: 0.0-0.8; Units: K/mm3; Status: F Test: EOS #; Value: 0.1; Range: 0.0-0.50; Units: K/mm3; Status: F Test: BASO #; Value: 0.1; Range: 0.0-0.2; Units: K/mm3; Status: F Test: LARGE UNSTAINED CELL #; Value: 0.1; Range: 0.0-0.4; Units: K/mm3; Status: F Lab Order: MED Profile; SPEC'M 04/19/16 16:32 Test: GLUCOSE, FASTING; Value: 86; Range: 70-105; Units: MG/DL; Status: F Test: BLOOD UREA NITROGEN; Value: 5; Range: 7-18; Abnormal: Below low normal; Units: MG/DL; Status: F Test: CREATININE FOR GFR; Value: 0.56; Range: 0.55-1.02; Units: MG/DL; Status: F Test: GLOMERULAR FILTRATION RATE; Value: > 60.0; Range: >60; Status: F Test: SODIUM LEVEL; Value: 138; Range: 136-145; Units: MEQ/L; Status: F Test: POTASSIUM SERUM; Value: 3.4; Range: 3.5-5.1; Abnormal: Below low normal; Units: MEQ/L; Status: F Test: CHLORIDE LEVEL; Value: 104; Range: 98-107; Units: MEQ/L; Status: F Test: CARBON DIOXIDE LEVEL; Value: 24; Range: 21-32; Units: MEQ/L; Status: F Test: ANION GAP; Value: 10; Range: 8-16; Units: MEQ/L; Status: F Test: CALCIUM LEVEL; Value: 9.5; Range: 8.5-10.1; Units: MG/DL; Status: F Test Note: ; Units are mL/min/1.73 m2 Chronic Kidney Disease Staging per NKF: Stage I & II GFR >=60 Normal to Mildly Decreased Stage III GFR 30-59 Moderately Decreased Stage IV GFR 15-29 Severely Decreased Stage V GFR <15 Very Little GFR Left ESRD GFR <15 on TRAINING ASSOCIATE Lab Order: UA; SPEC'M 04/19/16 16:33 Test: APPEARANCE, URINE; Value: CLOUDY; Range: CLEAR; Abnormal: Above high normal; Status: F Test: COLOR, URINE; Value: YELLOW; Range: YELLOW; Status: F Test: PH,URINE; Value: 5.0; Range: 5.0-9.0; Units: UNITS; Status: F Test: SPECIFIC GRAVITY URINE AUTO; Value: 1.029; Range: 1.002-1.035; Status: F Test: PROTEIN, URINE AUTO; Value: 1+; Range: NEGATIVE; Abnormal: Above high normal; Units: mg/dL; Status: F Test: GLUCOSE, URINE (UA) AUTO; Value: NEGATIVE; Range: NEGATIVE; Units: mg/dL; Status: F Test: KETONE, URINE AUTO; Value: 2+; Range: NEGATIVE; Abnormal: Above high normal; Units: mg/dL; Status: F Test: UROBILINOGEN, URINE AUTO; Value: 0.2; Range: 0.0-2.0; Units: mg/dL; Status: F Test: BILIRUBIN, URINE AUTO; Value: NEGATIVE; Range: NEGATIVE; Status: F Test: NITRITE, URINE AUTO; Value: NEGATIVE; Range: NEGATIVE; Status: F Test: LEUKOCYTE ESTERASE, URINE AUTO; Value: TRACE; Range: NEGATIVE; Abnormal: Above high normal; Status: F Test: BLOOD, URINE BLOOD; Value: NEGATIVE; Range: NEGATIVE; Status: F Test: WBC, URINE AUTO; Value: 8; Range: 0-3; Abnormal: Above high normal; Units: /HPF; Status: F Test: RBC, URINE AUTO; Value: 7; Range: 0-3; Abnormal: Above high normal; Units: /HPF; Status: F Test: BACTERIA, URINE AUTO; Value: NEGATIVE; Range: NEGATIVE; Status: F Test: SQUAMOUS EPITHELIAL CELL UR AU; Value: 8; Range: 0-6; Units: /HPF; Status: F Test: MUCUS, URINE; Value: LARGE; Range: NEGATIVE; Status: F Test: HYALINE CAST, URINE AUTO; Value: 0; Range: 0-1; Units: /LPF; Status: F Radiology Order: US 1st trimester Test: US 1st trimester REASON FOR EXAMINATION: r/o demise; Obstetric sonography:; ; History: Question intrauterine demise.; ; Findings: Transabdominal scanning demonstrates a viable single intrauterine; gestation in a free-floating lie. The embryonic pole measures 65 mm in; crown-rump length. This corresponds with a gestational age estimate of 12 weeks; 6 days. heart rate is recorded at 162 beats per minute. No extrauterine; abnormality is observed. No subchorionic hemorrhage is seen. No gross ; anomaly.; ; Impression:; ; Viable single intrauterine gestation at 12 weeks 6 days by crown-rump length.; AMAURI by sonography October 26, 2016. No complication is identified.; ; ; Signed by; Phillip Gale MD 04/19/2016 06:42 P; Outcome: 20:24 Discharge ordered by Provider. ck7 20:30 Discharge Assessment: Patient awake, alert and oriented x 3. No cognitive and/or dsf functional deficits noted. Patient verbalized understanding of disposition instructions. patient administered narcotics - no. The following High Risk Discharge criteria are identified: None. Discharged to home ambulatory. Condition: stable. Discharge instructions given to patient, Instructed on discharge instructions, follow up and referral plans. medication usage, Demonstrated understanding of instructions, medications, Pt was receptive of discharge instructions/ teaching. Prescriptions given X 1. Ultrasound Study completed. Property sent home with patient. 20:31 Patient left the ED. dsf Signatures: Dispatcher [employer] EDManohar Canseco,RN RN Ellen Moon, RN RN Nadya Hood, Sameer Reg Sanjana Ford,RN RN dsf Cortney Romero Chelsea cmb Kwaczala, Christopher, AGNESC RPA-Cck7 Louise Romano gr2 Josette SerranoRN RN Trina Orr Chart Complete MTDD
== END 2016-04-19 20:31 | disposition home or self-care (01) ==
LOC: M ED 13:22
DX: O21.9 Vomiting of pregnancy, unspecified (principal); Z3A.13 13 weeks gestation of pregnancy; O26.891 Other specified pregnancy related conditions, first trimester; O99.711 Diseases of the skin and subcutaneous tissue complicating pregnancy, first trimester; Z79.899 Other long term (current) drug therapy
CPT/HCPCS: 36415; 76801; 80048; 81001; 85025; 96361; 96365; 96366; 96375; 99284; J2405; J2765

== ENCOUNTER 2016-04-26 13:29 | Emergency (ER) | payer OTHER ==
[2016-04-26] MEDS ORDERED: ONDANSETRON 4MG/2ML VIAL (J2405) As Ordered ONE (14:58)
[2016-04-26 15:25] LABS: BASO % 0.3 % (0.0-1.0); EOS # 0.1 K/mm3 (0.0-0.50); EOS % 0.9 % (0.0-3.0); LARGE UNSTAINED CELL # 0.1 K/mm3 (0.0-0.4); LARGE UNSTAINED CELL % 1.2 % (0.0-4.0); LYMPH # 1.3 K/mm3 (1.5-6.5); LYMPH % 17.2 % (24.0-44.0); MEAN CORPUSCULAR HEMOGLOBIN 26.6 pg (27.0-33.0); MEAN CORPUSCULAR HGB CONC 32.6 g/dl (32.0-36.5); MEAN CORPUSCULAR VOLUME 81.5 fl (80.0-96.0); MONO # 0.4 K/mm3 (0.0-0.8); MONO % 4.4 % (0.0-5.0); NEUTROPHILS # 5.9 K/mm3 (1.8-7.7); PLATELET COUNT, AUTOMATED 253 k/mm3 (150-450); RED CELL DISTRIBUTION WIDTH 12.2 % (11.5-14.5); WHITE BLOOD COUNT 7.8 K/mm3 (4.0-10.0)
[2016-04-26 15:36] LABS: ALBUMIN 3.6 GM/DL (3.2-5.2); ALBUMIN/GLOBULIN RATIO 0.88 (1.00-1.93); ALKALINE PHOSPHATASE 90 U/L (45-117); ALT/SGPT 26 U/L (12-78); ANION GAP 10 MEQ/L (8-16); AST/SGOT 17 U/L (15-37); BILIRUBIN,DIRECT < 0.1 MG/DL (0.0-0.2); BILIRUBIN,TOTAL 0.3 MG/DL (0.2-1.0); BLOOD UREA NITROGEN 4 MG/DL (7-18); CALCIUM LEVEL 8.8 MG/DL (8.5-10.1); CARBON DIOXIDE LEVEL 23 MEQ/L (21-32); CHLORIDE LEVEL 104 MEQ/L (98-107); CREATININE FOR GFR 0.53 MG/DL (0.55-1.02); GLOMERULAR FILTRATION RATE > 60.0 (>60); GLUCOSE, FASTING 87 MG/DL (70-105); POTASSIUM SERUM 3.4 MEQ/L (3.5-5.1); SODIUM LEVEL 137 MEQ/L (136-145); TOTAL PROTEIN 7.7 GM/DL (6.4-8.2)
--- NOTE | 2016-04-26 16:44 | EDDOCDS ---
Nurse's Notes [facility] Name: Comfort Lee Age: 26 yrs Sex: Female : 1990 Arrival Date: 04/26/2016 Time: 13:29 Bed I5 / M5 Private MD: Ryan [facility] Diagnosis: Nausea with vomiting, unspecified Presentation: 04/26 13:38 Presenting complaint: Patient states: Pt developed hyperemesis gravidum at 13 weeks jo3 gestation. states she has been vomiting since 04/18. States there is blood in emesis. Adult Sepsis Screening: The patient does not have new or worsening altered mentation. Patient's respiratory rate is less than 22. Systolic blood pressure is greater than 100. Patient has a qSOFA score of 0- Negative Sepsis Screen. Suicide/Homicide risk assessment- the patient denies having any suicidal and/or homicidal ideations and does not present with any other emotional, behavioral or mental health complaints. Status: The patient is a dependent. Transition of care: patient was not received from another setting of care. 13:38 Acuity: BENOIT Level 3 jo3 13:38 Method Of Arrival: Walkin/Carried/Asstd jo3 Triage Assessment: 13:40 General: Appears ill, Behavior is appropriate for age, cooperative. HIV screening NA jo3 for this visit Offered previously. Neurological: Level of Consciousness is awake, alert, Oriented to person, place, time. Respiratory: No deficits noted. Airway is patent Respiratory effort is even, unlabored. Derm: Skin is pink, warm & dry. 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 Vitamin Oral once daily - PMHx: Endometriosis; Psoriasis; - PSHx: Endoscopy, Lower; Endoscopy, Upper; ovarian cystectomy; - Social history: Smoking status: Patient states was never smoker of tobacco. No barriers to communication noted, The patient speaks fluent Lithuanian, Speaks appropriately for age. - : The pt / caregiver states he / she is not on anticoagulants. Home medication list is obtained from the patient. - Exposure Risk Screening:: None identified. Screenin:41 Screening information is obtained from the patient. Fall risk: No risks identified. jmk Assistance ADL's: requires no assistance with activities of daily living. Abuse/DV Screen: The patient / caregiver reports he/she is: not in a situation that causes fear, pain or injury. Nutritional screening: No deficits noted. Advance Directives: Currently, there is no health care proxy. There is no active DNR order. There is no living will. There is no Power of Merchandising Stock Associate. Advance directive information has not previously been placed in an [facility] medical record. Further advance directive information is declined. home support is adequate. Assessment: 13:30 General: Appears in no apparent distress, skin warm and dry. moist pink oral mucosa. jmk abd soft and non distended with bowel sounds present x 4. without vaginal bleeding. slighlty more pale now vs 2 days ago. 15:59 General: Appears nausea lessened. Popsicle initiated. jmk 16:42 General: Appears reports less nausea. no vomiting since arrival. [facility] Vital Signs: 13:32 BP 122 / 82; Pulse 115; Resp 18; Temp 97.9; Pulse Ox 100% ; Weight 64.41 kg; Height 5 jrd ft. 5 in. (165.10 cm); Pain 0/10; 16:43 BP 118 / 65; Pulse 97; Resp 16; Temp 97.3; Pulse Ox 97% on R/A; jmk 13:32 Body Mass Index 23.63 (64.41 kg, 165.10 cm) [facility] Vitals: 13:32 Log In Time: April 26, 2016 at 13:29. [facility] ED Course: 13:30 Patient visited by Pepe Daniel PCA. jrd 13:30 Patient moved to Waiting jrd 13:31 Ryan Leonarda is Private Physician. jrd 13:33 Patient visited by Pepe Daniel PCA. jrd 13:37 Patient moved to Pre RCE jrd 13:39 Triage Initiated jo3 13:41 Patient visited by Sandra Bryant RN. jo3 14:08 Patient moved to Triage 1 jf3 14:09 Patient moved to Pre RCE jf3 14:24 Patient moved to Triage 3 ck1 14:35 Yohana Marlow [facility]-C [facility]. dt4 14:36 Ranulfo Garrison MD is Attending Physician. dt4 14:36 Patient visited by Tschudi, Yohana, PA-C. dt4 14:49 Patient moved to I3 / M3 jml1 14:49 Patient moved to I5 / M5 jml1 15:00 Inserted saline lock: 20 gauge in left antecubital area. jmk 15:08 Liver Profile Sent. jmk 15:08 Lipase Sent. jmk 15:08 Basic Metabolic Profile Sent. jmk 15:08 CBC with Diff Sent. jmk 15:17 [facility] Payment Agreement was scanned into [employer] and attached to record. gjb 15:24 Patient name changed from Damarie\S\\S\[place]\S\ to Damarie\S\ \S\[place]. EDMS 15:45 Patient visited by Orestes Oliveira. jml1 15:45 Assisted to bathroom. jml1 15:59 Patient visited by Manohar Goyal RN. jmk 16:41 The patient / caregiver is instructed regarding the plan of care and ED course. jmk 16:41 Discontinued lock intact, bleeding controlled, pressure dressing applied, No k redness/swelling at site. No procedures done that require assistance. Administered Medications: 15:08 Drug: NS 0.9% 1000 ml Route: IV; Rate: bolus; Site: left antecubital; jmk 15:08 Drug: Ondansetron 4 mg Route: IVP; Site: left antecubital; jmk 15:56 Follow up: Response: Nausea is resolved jmk 16:10 Drug: NS 0.9% 500 ml Route: IV; Rate: bolus; Site: left antecubital; k Intake: 16:43 IV: 1500.00ml; Total: 1500.00ml. [facility] Order Results: Lab Order: CBC with Diff; SPEC'M 04/26/16 15:06 Test: WHITE BLOOD COUNT; Value: 7.8; Range: 4.0-10.0; Units: K/mm3; Status: F Test: RED BLOOD COUNT; Value: 4.10; Range: 4.00-5.40; Units: M/mm3; Status: F Test: HEMOGLOBIN; Value: 10.9; Range: 12.0-16.0; Abnormal: Below low normal; Units: g/dl; Status: F Test: HEMATOCRIT; Value: 33.4; Range: 36.0-47.0; Abnormal: Below low normal; Units: %; Status: F Test: MEAN CORPUSCULAR VOLUME; Value: 81.5; Range: 80.0-96.0; Units: fl; Status: F Test: MEAN CORPUSCULAR HEMOGLOBIN; Value: 26.6; Range: 27.0-33.0; Abnormal: Below low normal; Units: pg; Status: F Test: MEAN CORPUSCULAR HGB CONC; Value: 32.6; Range: 32.0-36.5; Units: g/dl; Status: F Test: RED CELL DISTRIBUTION WIDTH; Value: 12.2; Range: 11.5-14.5; Units: %; Status: F Test: PLATELET COUNT, AUTOMATED; Value: 253; Range: 150-450; Units: k/mm3; Status: F Test: NEUTROPHILS %; Value: 76.0; Range: 36.0-66.0; Abnormal: Above high normal; Units: %; Status: F Test: LYMPH %; Value: 17.2; Range: 24.0-44.0; Abnormal: Below low normal; Units: %; Status: F Test: MONO %; Value: 4.4; Range: 0.0-5.0; Units: %; Status: F Test: EOS %; Value: 0.9; Range: 0.0-3.0; Units: %; Status: F Test: BASO %; Value: 0.3; Range: 0.0-1.0; Units: %; Status: F Test: LARGE UNSTAINED CELL %; Value: 1.2; Range: 0.0-4.0; Units: %; Status: F Test: NEUTROPHILS #; Value: 5.9; Range: 1.8-7.7; Units: K/mm3; Status: F Test: LYMPH #; Value: 1.3; Range: 1.5-6.5; Abnormal: Below low normal; Units: K/mm3; Status: F Test: MONO #; Value: 0.4; Range: 0.0-0.8; Units: K/mm3; Status: F Test: EOS #; Value: 0.1; Range: 0.0-0.50; Units: K/mm3; Status: F Test: BASO #; Value: 0.0; Range: 0.0-0.2; Units: K/mm3; Status: F Test: LARGE UNSTAINED CELL #; Value: 0.1; Range: 0.0-0.4; Units: K/mm3; Status: F Lab Order: Basic Metabolic Profile; [facility] 04/26/16 15:06 Test: GLUCOSE, FASTING; Value: 87; Range: 70-105; Units: MG/DL; Status: F Test: BLOOD UREA NITROGEN; Value: 4; Range: 7-18; Abnormal: Below low normal; Units: MG/DL; Status: F Test: CREATININE FOR GFR; Value: 0.53; Range: 0.55-1.02; Abnormal: Below low normal; Units: MG/DL; Status: F Test: GLOMERULAR FILTRATION RATE; Value: > 60.0; Range: >60; Status: F Test: SODIUM LEVEL; Value: 137; Range: 136-145; Units: MEQ/L; Status: F Test: POTASSIUM SERUM; Value: 3.4; Range: 3.5-5.1; Abnormal: Below low normal; Units: MEQ/L; Status: F Test: CHLORIDE LEVEL; Value: 104; Range: 98-107; Units: MEQ/L; Status: F Test: CARBON DIOXIDE LEVEL; Value: 23; Range: 21-32; Units: MEQ/L; Status: F Test: ANION GAP; Value: 10; Range: 8-16; Units: MEQ/L; Status: F Test: CALCIUM LEVEL; Value: 8.8; Range: 8.5-10.1; Units: MG/DL; Status: F Test Note: ; Units are mL/min/1.73 m2 Chronic Kidney Disease Staging per NKF: Stage I & II GFR >=60 Normal to Mildly Decreased Stage III GFR 30-59 Moderately Decreased Stage IV GFR 15-29 Severely Decreased Stage V GFR <15 Very Little GFR Left ESRD GFR <15 on COMPLIANCE FIELD TECHNICIAN Lab Order: Lipase; [facility]06 Test: LIPASE; Value: 122; Range: 73-393; Units: U/L; Status: F Lab Order: Liver Profile; [facility] 04/26/16 15:06 Test: AST/SGOT; Value: 17; Range: 15-37; Units: U/L; Status: F Test: ALT/SGPT; Value: 26; Range: 12-78; Units: U/L; Status: F Test: ALKALINE PHOSPHATASE; Value: 90; Range: 45-117; Units: U/L; Status: F Test: BILIRUBIN,TOTAL; Value: 0.3; Range: 0.2-1.0; Units: MG/DL; Status: F Test: BILIRUBIN,DIRECT; Value: < 0.1; Range: 0.0-0.2; Units: MG/DL; Status: F Test: TOTAL PROTEIN; Value: 7.7; Range: 6.4-8.2; Units: GM/DL; Status: F Test: ALBUMIN; Value: 3.6; Range: 3.2-5.2; Units: GM/DL; Status: F Test: ALBUMIN/GLOBULIN RATIO; Value: 0.88; Range: 1.00-1.93; Abnormal: Below low normal; Status: F Outcome: 16:35 Discharge ordered by Provider. dt4 16:43 Patient left the ED. krishan Signatures: Dispatcher [employer] EDManohar Canseco,RN RN Yanet Bloom,RN RN ck1 Sandra BryantRN RN Orestes Kovacs jml1 Yohana Marlow PA-C PAFeroz dt4 Pepe Daniel PCA PCA jrd Farman, Justin,RN RN Trina Syed MTDD
--- NOTE | 2016-04-26 16:44 | EDDOCDS ---
Physician Documentation [facility] Name: Comfort Lee Age: 26 yrs Sex: Female : 1990 Arrival Date: 04/26/2016 Time: 13:29 Bed I5 / M5 Private MD: [place] [facility] [place]position: 04/26/16 16:35 Discharged to Home/Self Care. Impression: Nausea with vomiting, unspecified. - Condition is Stable. - Discharge Instructions: Nausea and Vomiting. - Prescriptions for ZOFRAN ODT 4 mg Oral - dissolve 1 tablet by ORAL route 3-4 times daily As needed do not chew, do not swallow whole; 20 tablet. - Medication Reconciliation, Local Pharmacy Hours form. - Follow up: Emergency Department; When: As needed; Reason: Worsening of conditions. Follow up: Private Physician; When: 2 - 3 days; Reason: Wound/Symptom Recheck, Recheck today's complaints, Continuance of care. - Problem is new. - Symptoms have improved. Historical: - Allergies: No known drug Allergies; - Home Meds: 1. Vitamin Oral once daily - PMHx: Endometriosis; Psoriasis; - PSHx: Endoscopy, Lower; Endoscopy, Upper; ovarian cystectomy; - Social history: Smoking status: Patient states was never smoker of tobacco. No barriers to communication noted, The patient speaks fluent Danish, Speaks appropriately for age. - : The pt / caregiver states he / she is not on anticoagulants. Home medication list is obtained from the patient. - Exposure Risk Screening:: None identified. 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 5 in. (165.10 cm); Pain 0/10; 16:43 BP 118 / 65; Pulse 97; Resp 16; Temp 97.3; Pulse Ox 97% on R/A; jmk 13:32 Body Mass Index 23.63 (64.41 kg, 165.10 cm) jrd MDM: 14:52 IV Saline Lock ordered. dt4 14:52 NS 0.9% 1000 ml IV at bolus once ordered. dt4 14:52 NS 0.9% 500 ml IV at bolus once ordered. dt4 14:52 Ondansetron 4 mg IVP once ordered. dt4 14:53 CBC with Diff Ordered. EDMS 14:53 Basic Metabolic Profile Ordered. EDMS 14:53 Lipase Ordered. EDMS 14:53 Liver Profile Ordered. EDMS 15:16 Financial registration complete. paul 15:17 [facility] Payment Agreement was scanned into Personally and attached to record. gjb Administered Medications: 15:08 Drug: NS 0.9% 1000 ml Route: IV; Rate: bolus; Site: left antecubital; jmk 15:08 Drug: Ondansetron 4 mg Route: IVP; Site: left antecubital; k 15:56 Follow up: Response: Nausea is resolved jmk 16:10 Drug: NS 0.9% 500 ml Route: IV; Rate: bolus; Site: left antecubital; [facility] Signatures: Dispatcher [employer] Manohar Osborne RN RN jmk Helmerci, Jennifer, RN RN jo3 Tschudi, Diane, PA-C PA-C dt4 Beck, Gabriela gjb The chart was reviewed and I authenticate all verbal orders and agree with the evaluation and treatment provided.Attachments: 15:17 [facility] Payment Agreement paul MTDD
--- NOTE | 2016-04-28 17:44 | EDDOCDS ---
Nurse's Notes [facility] Name: Comfort Lee Age: 26 yrs Sex: Female : 1990 Arrival Date: 04/26/2016 Time: 13:29 Bed I5 / M5 Private MD: [place] [facility] [place]: Nausea with vomiting, unspecified Presentation: 04/26 13:38 Presenting complaint: Patient states: Pt developed hyperemesis gravidum at 13 weeks jo3 gestation. states she has been vomiting since 04/18. States there is blood in emesis. Adult Sepsis Screening: The patient does not have new or worsening altered mentation. Patient's respiratory rate is less than 22. Systolic blood pressure is greater than 100. Patient has a qSOFA score of 0- Negative Sepsis Screen. Suicide/Homicide risk assessment- the patient denies having any suicidal and/or homicidal ideations and does not present with any other emotional, behavioral or mental health complaints. Status: The patient is a dependent. Transition of care: patient was not received from another setting of care. 13:38 Acuity: BENOIT Level 3 jo3 13:38 Method Of Arrival: Walkin/Carried/Asstd jo3 Triage Assessment: 13:40 General: Appears ill, Behavior is appropriate for age, cooperative. HIV screening NA jo3 for this visit Offered previously. Neurological: Level of Consciousness is awake, alert, Oriented to person, place, time. Respiratory: No deficits noted. Airway is patent Respiratory effort is even, unlabored. Derm: Skin is pink, warm & dry. 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 Vitamin Oral once daily - PMHx: Endometriosis; Psoriasis; - PSHx: Endoscopy, Lower; Endoscopy, Upper; ovarian cystectomy; - Social history: Smoking status: Patient states was never smoker of tobacco. No barriers to communication noted, The patient speaks fluent French, Speaks appropriately for age. - : The pt / caregiver states he / she is not on anticoagulants. Home medication list is obtained from the patient. - Exposure Risk Screening:: None identified. Screenin:41 Screening information is obtained from the patient. Fall risk: No risks identified. jmk Assistance ADL's: requires no assistance with activities of daily living. Abuse/DV Screen: The patient / caregiver reports he/she is: not in a situation that causes fear, pain or injury. Nutritional screening: No deficits noted. Advance Directives: Currently, there is no health care proxy. There is no active DNR order. There is no living will. 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 Advance directive information has not previously been placed in an [facility] medical record. Further advance directive information is declined. home support is adequate. Assessment: 13:30 General: Appears in no apparent distress, skin warm and dry. moist pink oral mucosa. jmk abd soft and non distended with bowel sounds present x 4. without vaginal bleeding. slighlty more pale now vs 2 days ago. 15:59 General: Appears nausea lessened. Popsicle initiated. jmk 16:42 General: Appears reports less nausea. no vomiting since arrival. [facility] Vital Signs: 13:32 BP 122 / 82; Pulse 115; Resp 18; Temp 97.9; Pulse Ox 100% ; Weight 64.41 kg; Height 5 jrd ft. 5 in. (165.10 cm); Pain 0/10; 16:43 BP 118 / 65; Pulse 97; Resp 16; Temp 97.3; Pulse Ox 97% on R/A; jmk 13:32 Body Mass Index 23.63 (64.41 kg, 165.10 cm) [facility] Vitals: 13:32 Log In Time: April 26, 2016 at 13:29. [facility] ED Course: 13:30 Patient visited by Pepe Daniel PCA. jrd 13:30 Patient moved to Waiting jrd 13:31 Ryan Leonarda is Private Physician. jrd 13:33 Patient visited by Pepe Daniel PCA. jrd 13:37 Patient moved to Pre RCE jrd 13:39 Triage Initiated jo3 13:41 Patient visited by Sandra Bryant RN. jo3 14:08 Patient moved to Triage 1 jf3 14:09 Patient moved to Pre RCE jf3 14:24 Patient moved to Triage 3 ck1 14:35 Y[facility]low [facility]. dt4 14:36 Ranulfo Garrison MD is Attending Physician. dt4 14:36 Patient visited by Tschudi, Yohana, PA-C. dt4 14:49 Patient moved to I3 / M3 jml1 14:49 Patient moved to I5 / M5 jml1 15:00 Inserted saline lock: 20 gauge in left antecubital area. jmk 15:08 Liver Profile Sent. jmk 15:08 Lipase Sent. jmk 15:08 Basic Metabolic Profile Sent. jmk 15:08 CBC with Diff Sent. jmk 15:17 [facility] [place] Payment Agreement was scanned into [employer] and attached to record. gjb 15:24 Patient name changed from Damarie\S\\S\[place]\S\ to Damarie\S\ \S\[place]. EDMS 15:45 Patient visited by Orestes Oliveira. jml1 15:45 Assisted to bathroom. jml1 15:59 Patient visited by Manohar Goyal RN. jmk 16:41 The patient / caregiver is instructed regarding the plan of care and ED course. jmk 16:41 Discontinued lock intact, bleeding controlled, pressure dressing applied, No jmk redness/swelling at site. No procedures done that require assistance. 04/27 12:14 T-Sheet-- Draft Copy was scanned into [employer] and attached to record. gb Administered Medications: 04/26 15:08 Drug: NS 0.9% 1000 ml Route: IV; Rate: bolus; Site: left antecubital; jmk 15:08 Drug: Ondansetron 4 mg Route: IVP; Site: left antecubital; jmk 15:56 Follow up: Response: Nausea is resolved jmk 16:10 Drug: NS 0.9% 500 ml Route: IV; Rate: bolus; Site: left antecubital; k Intake: 16:43 IV: 1500.00ml; Total: 1500.00ml. [facility] Order Results: Lab Order: CBC with Diff; SPEC'M 04/26/16 15:06 Test: WHITE BLOOD COUNT; Value: 7.8; Range: 4.0-10.0; Units: K/mm3; Status: F Test: RED BLOOD COUNT; Value: 4.10; Range: 4.00-5.40; Units: M/mm3; Status: F Test: HEMOGLOBIN; Value: 10.9; Range: 12.0-16.0; Abnormal: Below low normal; Units: g/dl; Status: F Test: HEMATOCRIT; Value: 33.4; Range: 36.0-47.0; Abnormal: Below low normal; Units: %; Status: F Test: MEAN CORPUSCULAR VOLUME; Value: 81.5; Range: 80.0-96.0; Units: fl; Status: F Test: MEAN CORPUSCULAR HEMOGLOBIN; Value: 26.6; Range: 27.0-33.0; Abnormal: Below low normal; Units: pg; Status: F Test: MEAN CORPUSCULAR HGB CONC; Value: 32.6; Range: 32.0-36.5; Units: g/dl; Status: F Test: RED CELL DISTRIBUTION WIDTH; Value: 12.2; Range: 11.5-14.5; Units: %; Status: F Test: PLATELET COUNT, AUTOMATED; Value: 253; Range: 150-450; Units: k/mm3; Status: F Test: NEUTROPHILS %; Value: 76.0; Range: 36.0-66.0; Abnormal: Above high normal; Units: %; Status: F Test: LYMPH %; Value: 17.2; Range: 24.0-44.0; Abnormal: Below low normal; Units: %; Status: F Test: MONO %; Value: 4.4; Range: 0.0-5.0; Units: %; Status: F Test: EOS %; Value: 0.9; Range: 0.0-3.0; Units: %; Status: F Test: BASO %; Value: 0.3; Range: 0.0-1.0; Units: %; Status: F Test: LARGE UNSTAINED CELL %; Value: 1.2; Range: 0.0-4.0; Units: %; Status: F Test: NEUTROPHILS #; Value: 5.9; Range: 1.8-7.7; Units: K/mm3; Status: F Test: LYMPH #; Value: 1.3; Range: 1.5-6.5; Abnormal: Below low normal; Units: K/mm3; Status: F Test: MONO #; Value: 0.4; Range: 0.0-0.8; Units: K/mm3; Status: F Test: EOS #; Value: 0.1; Range: 0.0-0.50; Units: K/mm3; Status: F Test: BASO #; Value: 0.0; Range: 0.0-0.2; Units: K/mm3; Status: F Test: LARGE UNSTAINED CELL #; Value: 0.1; Range: 0.0-0.4; Units: K/mm3; Status: F Lab Order: Basic Metabolic Profile; [facility] 04/26/16 15:06 Test: GLUCOSE, FASTING; Value: 87; Range: 70-105; Units: MG/DL; Status: F Test: BLOOD UREA NITROGEN; Value: 4; Range: 7-18; Abnormal: Below low normal; Units: MG/DL; Status: F Test: CREATININE FOR GFR; Value: 0.53; Range: 0.55-1.02; Abnormal: Below low normal; Units: MG/DL; Status: F Test: GLOMERULAR FILTRATION RATE; Value: > 60.0; Range: >60; Status: F Test: SODIUM LEVEL; Value: 137; Range: 136-145; Units: MEQ/L; Status: F Test: POTASSIUM SERUM; Value: 3.4; Range: 3.5-5.1; Abnormal: Below low normal; Units: MEQ/L; Status: F Test: CHLORIDE LEVEL; Value: 104; Range: 98-107; Units: MEQ/L; Status: F Test: CARBON DIOXIDE LEVEL; Value: 23; Range: 21-32; Units: MEQ/L; Status: F Test: ANION GAP; Value: 10; Range: 8-16; Units: MEQ/L; Status: F Test: CALCIUM LEVEL; Value: 8.8; Range: 8.5-10.1; Units: MG/DL; Status: F Test Note: ; Units are mL/min/1.73 m2 Chronic Kidney Disease Staging per NKF: Stage I & II GFR >=60 Normal to Mildly Decreased Stage III GFR 30-59 Moderately Decreased Stage IV GFR 15-29 Severely Decreased Stage V GFR <15 Very Little GFR Left ESRD GFR <15 on SUPERVISOR DRY CLEANING Lab Order: Lipase; [facility] 04/26/16 15:06 Test: LIPASE; Value: 122; Range: 73-393; Units: U/L; Status: F Lab Order: Liver Profile; [facility] 04/26/16 15:06 Test: AST/SGOT; Value: 17; Range: 15-37; Units: U/L; Status: F Test: ALT/SGPT; Value: 26; Range: 12-78; Units: U/L; Status: F Test: ALKALINE PHOSPHATASE; Value: 90; Range: 45-117; Units: U/L; Status: F Test: BILIRUBIN,TOTAL; Value: 0.3; Range: 0.2-1.0; Units: MG/DL; Status: F Test: BILIRUBIN,DIRECT; Value: < 0.1; Range: 0.0-0.2; Units: MG/DL; Status: F Test: TOTAL PROTEIN; Value: 7.7; Range: 6.4-8.2; Units: GM/DL; Status: F Test: ALBUMIN; Value: 3.6; Range: 3.2-5.2; Units: GM/DL; Status: F Test: ALBUMIN/GLOBULIN RATIO; Value: 0.88; Range: 1.00-1.93; Abnormal: Below low normal; Status: F Outcome: 16:35 Discharge ordered by Provider. dt4 16:43 Patient left the ED. krishan Signatures: Dispatcher [employer] EDMS Manohar Goyal,RN RN Nadya Garcia, Reg Reg Yanet Lewis,RN RN ck1 Sandra Bryant,RN RN Orestes Kovacs jmYohana Owen PAFeroz PA-C dt4 Pepe Daniel, ORACLE SCM CONSULTANT ORACLE SCM CONSULTANT jrd Rohit Carroll RN RN Trina Syed Chart Complete MTDD
--- NOTE | 2016-04-28 17:44 | EDDOCDS ---
Physician Documentation [facility] Name: Comfort Lee Age: 26 yrs Sex: Female : 1990 Arrival Date: 04/26/2016 Time: 13:29 Bed I5 / M5 Private MD: Ryan [facility] [place] Disposition: 04/26/16 16:35 Discharged to Home/Self Care. Impression: Nausea with vomiting, unspecified. - Condition is Stable. - Discharge Instructions: Nausea and Vomiting. - Prescriptions for ZOFRAN ODT 4 mg Oral - dissolve 1 tablet by ORAL route 3-4 times daily As needed do not chew, do not swallow whole; 20 tablet. - Medication Reconciliation, Local Pharmacy Hours form. - Follow up: Emergency Department; When: As needed; Reason: Worsening of conditions. Follow up: Private Physician; When: 2 - 3 days; Reason: Wound/Symptom Recheck, Recheck today's complaints, Continuance of care. - Problem is new. - Symptoms have improved. Historical: - Allergies: No known drug Allergies; - Home Meds: 1. Vitamin Oral once daily - PMHx: Endometriosis; Psoriasis; - PSHx: Endoscopy, Lower; Endoscopy, Upper; ovarian cystectomy; - Social history: Smoking status: Patient states was never smoker of tobacco. No barriers to communication noted, The patient speaks fluent Macedonian, Speaks appropriately for age. - : The pt / caregiver states he / she is not on anticoagulants. Home medication list is obtained from the patient. - Exposure Risk Screening:: None identified. 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 5 in. (165.10 cm); Pain 0/10; 16:43 BP 118 / 65; Pulse 97; Resp 16; Temp 97.3; Pulse Ox 97% on R/A; jmk 13:32 Body Mass Index 23.63 (64.41 kg, 165.10 cm) jrd MDM: 14:52 IV Saline Lock ordered. dt4 14:52 NS 0.9% 1000 ml IV at bolus once ordered. dt4 14:52 NS 0.9% 500 ml IV at bolus once ordered. dt4 14:52 Ondansetron 4 mg IVP once ordered. dt4 14:53 CBC with Diff Ordered. EDMS 14:53 Basic Metabolic Profile Ordered. EDMS 14:53 Lipase Ordered. EDMS 14:53 Liver Profile Ordered. EDMS 15:16 Financial registration complete. [facility] 15:17 [facility] Payment Agreement was scanned into [employer] and attached to record. [facility] 04/27 12:14 T-Sheet-- Draft Copy was scanned into [employer] and attached to record. gb Administered Medications: 04/26 15:08 Drug: NS 0.9% 1000 ml Route: IV; Rate: bolus; Site: left antecubital; k 15:08 Drug: Ondansetron 4 mg Route: IVP; Site: left antecubital; k 15:56 Follow up: Response: Nausea is resolved k 16:10 Drug: NS 0.9% 500 ml Route: IV; Rate: bolus; Site: left antecubital; [facility] Signatures: Dispatcher [employer] Manohar Osborne,RN RN Nadya Garcia, Reg Reg Sandra Sanches,RN RN jo3 Yohana Marlow PA-C PAFeroz dt4 Trina Bedoya The chart was reviewed and I authenticate all verbal orders and agree with the evaluation and treatment provided.Attachments: 15:17 [facility] Payment Agreement [facility] 04/27 12:14 T-Sheet-- Draft Copy gb Chart Complete MTDD
--- NOTE | 2016-04-28 17:44 | EDDOCDS ---
Physician Documentation [facility] Name: Comfort Lee Age: 26 yrs Sex: Female : 1990 Arrival Date: 04/26/2016 Time: 13:29 Bed I5 / M5 Private MD: Ryan [facility] [place] Disposition: 04/26/16 16:35 Discharged to Home/Self Care. Impression: Nausea with vomiting, unspecified. - Condition is Stable. - Discharge Instructions: Nausea and Vomiting. - Prescriptions for ZOFRAN ODT 4 mg Oral - dissolve 1 tablet by ORAL route 3-4 times daily As needed do not chew, do not swallow whole; 20 tablet. - Medication Reconciliation, Local Pharmacy Hours form. - Follow up: Emergency Department; When: As needed; Reason: Worsening of conditions. Follow up: Private Physician; When: 2 - 3 days; Reason: Wound/Symptom Recheck, Recheck today's complaints, Continuance of care. - Problem is new. - Symptoms have improved. Historical: - Allergies: No known drug Allergies; - Home Meds: 1. Vitamin Oral once daily - PMHx: Endometriosis; Psoriasis; - PSHx: Endoscopy, Lower; Endoscopy, Upper; ovarian cystectomy; - Social history: Smoking status: Patient states was never smoker of tobacco. No barriers to communication noted, The patient speaks fluent Spanish, Speaks appropriately for age. - : The pt / caregiver states he / she is not on anticoagulants. Home medication list is obtained from the patient. - Exposure Risk Screening:: None identified. 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 5 in. (165.10 cm); Pain 0/10; 16:43 BP 118 / 65; Pulse 97; Resp 16; Temp 97.3; Pulse Ox 97% on R/A; jmk 13:32 Body Mass Index 23.63 (64.41 kg, 165.10 cm) jrd MDM: 14:52 IV Saline Lock ordered. dt4 14:52 NS 0.9% 1000 ml IV at bolus once ordered. dt4 14:52 NS 0.9% 500 ml IV at bolus once ordered. dt4 14:52 Ondansetron 4 mg IVP once ordered. dt4 14:53 CBC with Diff Ordered. EDMS 14:53 Basic Metabolic Profile Ordered. EDMS 14:53 Lipase Ordered. EDMS 14:53 Liver Profile Ordered. EDMS 15:16 Financial registration complete. [facility] 15:17 [facility] Payment Agreement was scanned into [employer] and attached to record. [facility] 04/27 12:14 T-Sheet-- Draft Copy was scanned into [employer] and attached to record. gb Administered Medications: 04/26 15:08 Drug: NS 0.9% 1000 ml Route: IV; Rate: bolus; Site: left antecubital; k 15:08 Drug: Ondansetron 4 mg Route: IVP; Site: left antecubital; k 15:56 Follow up: Response: Nausea is resolved k 16:10 Drug: NS 0.9% 500 ml Route: IV; Rate: bolus; Site: left antecubital; [facility] Signatures: Dispatcher [employer] Manohar Osborne,RN RN Nadya Garcia, Reg Reg Sandra Sanches,RN RN jo3 Yohana Marlow PA-C PAFeroz dt4 Trina Bedoya The chart was reviewed and I authenticate all verbal orders and agree with the evaluation and treatment provided.Attachments: 15:17 [facility] Payment Agreement [facility] 04/27 12:14 T-Sheet-- Draft Copy gb Chart Complete MTDD
== END 2016-04-26 16:43 | disposition home or self-care (01) ==
LOC: M ED 13:29
DX: O21.0 Mild hyperemesis gravidarum (principal); Z3A.13 13 weeks gestation of pregnancy; N80.9 Endometriosis, unspecified; L40.9 Psoriasis, unspecified
CPT/HCPCS: 36415; 80048; 80076; 83690; 85025; 96374; 99284; J2405

== ENCOUNTER 2016-11-28 08:34 | Emergency (ER) | payer OTHER ==
[~2016-11-28] VITALS: Ht 165.1 cm; Wt 68.2 kg
[2016-11-28] MEDS ORDERED: PNVTAB4 PO (08:57)
[2016-11-28] MEDS ORDERED: PROAAER10 (08:57)
[2016-11-28 10:15] LABS: BASO % 0.3 % (0.0-1.0); EOS # 0.1 K/mm3 (0.0-0.50); EOS % 2.1 % (0.0-3.0); LARGE UNSTAINED CELL # 0.1 K/mm3 (0.0-0.4); LARGE UNSTAINED CELL % 1.6 % (0.0-4.0); LYMPH # 1.2 K/mm3 (1.5-6.5); LYMPH % 21.6 % (24.0-44.0); MEAN CORPUSCULAR HEMOGLOBIN 26.7 pg (27.0-33.0); MEAN CORPUSCULAR HGB CONC 32.3 g/dl (32.0-36.5); MEAN CORPUSCULAR VOLUME 82.6 fl (80.0-96.0); MONO # 0.3 K/mm3 (0.0-0.8); MONO % 5.7 % (0.0-5.0); NEUTROPHILS # 3.8 K/mm3 (1.8-7.7); NEUTROPHILS % 68.7 % (36.0-66.0); PLATELET COUNT, AUTOMATED 280 k/mm3 (150-450); RED CELL DISTRIBUTION WIDTH 13.5 % (11.5-14.5); WHITE BLOOD COUNT 5.6 K/mm3 (4.0-10.0)
[2016-11-28 10:28] LABS: ALBUMIN 3.7 GM/DL (3.2-5.2); ALBUMIN/GLOBULIN RATIO 0.88 (1.00-1.93); ALKALINE PHOSPHATASE 81 U/L (45-117); ALT/SGPT 24 U/L (12-78); AMYLASE 39 U/L (25-115); ANION GAP 9 MEQ/L (8-16); AST/SGOT 23 U/L (15-37); BILIRUBIN,DIRECT 0.1 MG/DL (0.0-0.2); BILIRUBIN,TOTAL 0.4 MG/DL (0.2-1.0); BLOOD UREA NITROGEN 12 MG/DL (7-18); CALCIUM LEVEL 9.5 MG/DL (8.5-10.1); CARBON DIOXIDE LEVEL 26 MEQ/L (21-32); CHLORIDE LEVEL 109 MEQ/L (98-107); CREATININE FOR GFR 0.65 MG/DL (0.55-1.02); GLOMERULAR FILTRATION RATE > 60.0 (>60); GLUCOSE, FASTING 76 MG/DL (70-105); POTASSIUM SERUM 3.6 MEQ/L (3.5-5.1); SODIUM LEVEL 144 MEQ/L (136-145); TOTAL PROTEIN 7.9 GM/DL (6.4-8.2)
[2016-11-28 11:09] LABS: CONTROL LINE UCG INT CTR LINE PRESENT
--- NOTE | 2016-11-28 11:24 | REP ---
Clinical: pelvic pain. Technique: Transabdominal pelvic ultrasound followed by transvaginal examination for better evaluation of the endometrium and adnexa with color Doppler evaluation of the uterus and ovaries. Findings: The urinary bladder is collapsed. Anteverted uterus measures 8.5 x 3.9 x 6.6 cm. Endometrial complex measures 6.7 mm thickness and includes trace endocervical fluid and small calcifications bilateral ovaries are normal in appearance without torsion. Right ovary measures 3.4 x 1.9 x 2.3 cm; RI = 0.55. Left ovary measures 3.2 x 2.4 x 2.4 cm; RI = 0.50. No pelvic fluid or adnexal mass lesion. Impression: 1. Small amount of residual fluid in the endocervical canal along with small calcifications. No definite sonographic evidence for retained products of conception. 2. Normal appearance the bilateral ovaries without torsion. No pelvic free fluid. Signed by Owen Morales MD 11/28/2016 11:15 A
[2016-11-28 11:59] VITALS: BP 145/78
== END 2016-11-28 12:00 ==
LOC: M ED 08:34
DX: O72.2 Delayed and secondary postpartum hemorrhage (principal); R10.2 Pelvic and perineal pain; O99.03 Anemia complicating the puerperium; D64.9 Anemia, unspecified